=== PATIENT | female | born 1990 | race Caucasian/White ===

== ENCOUNTER 2019-02-22 03:59 | Outpatient (CLI) | payer OTHER ==
[~2019-02-22] VITALS: Ht 167.6 cm; Wt 80.5 kg
--- NOTE | 2019-02-22 04:06 | NUR ---
MEGAN HOWARD presented to unit via ambulation from ED, accompanied by s.o. and ED techs, with c/o CONTRACTIONS. MEGAN HOWARD weighed, gowned, voided, and to bed. EFHM and TOCO applied, VS taken. MEGAN HOWARD oriented to bed controls, call light, TV, heat, and A/C controls.
[2019-02-22 04:25] VITALS: BP 114/60
[2019-02-22] MEDS ORDERED: NS IV 1000 ML 1,000 ML ONE ×2 (04:25→05:34)
[2019-02-22 04:30] LABS: BILIRUBIN,URINE NEGATIVE (NEGATIVE); CLARITY,URINE CLEAR; COLOR,URINE YELLOW; GLUCOSE, URINE (UA) NEGATIVE (NEGATIVE); KETONES,URINE NEGATIVE (NEGATIVE); LEUKOCYTE ESTERASE ,URINE 2+ (NEGATIVE); NITRITE,URINE NEGATIVE (NEGATIVE); PH,URINE 7 (5-9); PROTEIN,URINE NEGATIVE (NEGATIVE); UROBILINOGEN,URINE NORMAL (NORMAL)
[2019-02-22] MEDS ORDERED: PROMETHAZINE INJ 25 MG/ML (PHENERGAN) AMP IVP PRN (04:30)
[2019-02-22] MEDS ORDERED: NS IV 1000 ML 1,000 ML IV SCH (04:30)
[2019-02-22] MEDS ORDERED: PROMETHAZINE INJ 25 MG/ML (PHENERGAN) AMP ONE (04:38)
[2019-02-22 04:43] LABS: BACTERIA,URINE MODERATE /HPF; WBC,URINE 0-2 /HPF
[2019-02-22] MEDS ORDERED: ONDANSETRON 4 MG/2 ML (SDV) Z0FRAN IVP PRN (04:45)
[2019-02-22 04:52] LABS: BASOPHILS % (AUTO) 0 % (0-10); EOSINOPHILS # (AUTO) 0.2 10^3/uL (0.0-0.3); EOSINOPHILS % (AUTO) 1 % (0-10); HEMATOCRIT 34 % (35-52); HEMOGLOBIN 11.4 G/DL (11.5-16.0); LYMPHOCYTES # (AUTO) 1.5 X 10^3 (1.0-4.0); LYMPHOCYTES % (AUTO) 14 % (12-44); MEAN CORPUSCULAR HEMOGLOBIN 30 PG (25-34); MEAN CORPUSCULAR HGB CONC 34 G/DL (32-36); MEAN CORPUSCULAR VOLUME 89 FL (80-99); MEAN PLATELET VOLUME 10.9 FL (7.4-10.4); MONOCYTES # (AUTO) 0.7 X 10^3 (0.0-1.0); MONOCYTES % (AUTO) 6 % (0-12); NEUTROPHILS # (AUTO) 8.6 X 10^3 (1.8-7.8); NEUTROPHILS % (AUTO) 78 % (42-75); PLATELET COUNT 209 10^3/uL (130-400)
[2019-02-22] MEDS ORDERED: OMEP20TA7 PO (05:01)
[2019-02-22] MEDS ORDERED: PREN1TAB79 PO (05:01)
[2019-02-22 05:23] LABS: ALANINE AMINOTRANSFERASE 19 U/L (0-55); ALBUMIN 3.5 GM/DL (3.2-4.5); ALKALINE PHOSPHATASE 97 U/L (40-136); BILIRUBIN,TOTAL 0.8 MG/DL (0.1-1.0); BUN/CREATININE RATIO 17; CARBON DIOXIDE 17 MMOL/L (21-32); CHLORIDE 107 MMOL/L (98-107); CREATININE SERUM 0.59 MG/DL (0.60-1.30); GFR ESTIMATED > 60; GLUCOSE 87 MG/DL (70-105); POTASSIUM 4.2 MMOL/L (3.6-5.0); SODIUM 137 MMOL/L (135-145); TOTAL PROTEIN 6.6 GM/DL (6.4-8.2)
--- NOTE | 2019-02-22 05:24 | NUR ---
Pt having severe nausea with increase in UC, Pt states UC are not that severe but nausea has pt moaning and moving in bed. Dr Spencer called and order for stadol received. Pt receptive to medication.
[2019-02-22] MEDS ORDERED: BUTORPHANOL INJ 2 MG/ML (STADOL) VIAL ONE (05:27)
[2019-02-22] MEDS ORDERED: BUTORPHANOL INJ 2 MG/ML (STADOL) VIAL IV ONE (05:30)
[2019-02-22] MEDS ORDERED: NS 1000 ML IV BAG IV ONE ×2 (05:45→11:00)
--- NOTE | 2019-02-22 06:47 | NUR ---
Dr Spencer called with report,no change at this time, pt continues to rest.
[2019-02-22 07:30] VITALS: BP 119/85
[2019-02-22] MEDS ORDERED: morphine INJ 5 MG/ML 1 ML VIAL IV PRN (09:45)
[2019-02-22] MEDS ORDERED: morphine INJ 10 MG/ML 1ML (SYR OR VIAL) IV PRN (10:00)
--- NOTE | 2019-02-22 12:25 | NUR ---
Discharge to home. OB outpt discharge instructions given. Follow up appointment 02/24/19. Ambulatory with to exit.
== END 2019-02-22 12:25 ==
LOC: WSo 03:59 → LDRP 04:05 → WSo 12:25
PROVIDERS: ATTEND Obstetrics & Gynecology
DX: O62.9 Abnormality of forces of labor, unspecified (principal); Z3A.38 38 weeks gestation of pregnancy
CPT/HCPCS: 36415; 80053; 81000; 85025; 96361; 96374; 96375; 99214

== ENCOUNTER 2019-02-28 03:05 | Inpatient (IN) | payer OTHER ==
[2019-02-28] VITALS (42 sets, daily range): BP systolic 99–130; BP diastolic 9–89
[~2019-02-28] VITALS: Ht 167.6 cm; Wt 82.2 kg
--- NOTE | 2019-02-28 02:59 | NUR ---
MEGAN HOWARD presented to unit via from ED, accompanied by , with c/o WAS HAVING CONTRACTIONS. MEGAN HOWARD weighed, gowned, voided, and to bed. EFHM and TOCO applied, VS taken. MEGAN HOWARD oriented to bed controls, call light, TV, heat, and A/C controls.
[~2019-02-28 03:05] MED LIST: OMEP20TA7 PO; PREN1TAB79 PO
--- NOTE | 2019-02-28 03:14 | NUR ---
notified of pt's arrival and exam. admission order received.
[2019-02-28] MEDS ORDERED: D5 LR IV SOLUTION 1,000 ML IV SCH (03:19)
[2019-02-28] MEDS ORDERED: LACTATED RINGERS 1,000 ML IV ONE ×3 (03:27→05:20)
[2019-02-28] MEDS ORDERED: MINERAL OIL CONCENTRATE 99.9% 15 ML UDC TOP PRN (03:30)
[2019-02-28 03:46] LABS: BASOPHILS % (AUTO) 0 % (0-10); EOSINOPHILS # (AUTO) 0.2 10^3/uL (0.0-0.3); EOSINOPHILS % (AUTO) 2 % (0-10); HEMATOCRIT 33 % (35-52); HEMOGLOBIN 11.5 G/DL (11.5-16.0); LYMPHOCYTES % (AUTO) 19 % (12-44); MEAN CORPUSCULAR HEMOGLOBIN 30 PG (25-34); MEAN CORPUSCULAR HGB CONC 35 G/DL (32-36); MEAN CORPUSCULAR VOLUME 88 FL (80-99); MEAN PLATELET VOLUME 10.9 FL (7.4-10.4); MONOCYTES # (AUTO) 0.8 X 10^3 (0.0-1.0); MONOCYTES % (AUTO) 8 % (0-12); NEUTROPHILS # (AUTO) 7.3 X 10^3 (1.8-7.8); NEUTROPHILS % (AUTO) 70 % (42-75); PLATELET COUNT 226 10^3/uL (130-400); WHITE BLOOD COUNT 10.3 10^3/uL (4.3-11.0)
[2019-02-28] MEDS ORDERED: SUFENTA 0.6MCG/ML BUPIVA 0.125 100 ML ONE (03:46)
[2019-02-28 03:59] LABS: BILIRUBIN,URINE NEGATIVE (NEGATIVE); CLARITY,URINE CLEAR; COLOR,URINE YELLOW; GLUCOSE, URINE (UA) NEGATIVE (NEGATIVE); KETONES,URINE NEGATIVE (NEGATIVE); LEUKOCYTE ESTERASE ,URINE 1+ (NEGATIVE); NITRITE,URINE NEGATIVE (NEGATIVE); PH,URINE 7 (5-9); PROTEIN,URINE NEGATIVE (NEGATIVE); UROBILINOGEN,URINE NORMAL (NORMAL)
[2019-02-28] MEDS ORDERED: MINERAL OIL CONCENTRATE 99.9% 15 ML UDC ONE (04:07)
[2019-02-28] MEDS ORDERED: OXYTOCIN/NORMAL SALINE 500 ML IV ONE ×2 (04:07→10:12)
[2019-02-28] MEDS ORDERED: LIDOCAINE/EPI 2% 1:200,00 (XYLOCAINE) 10 ML VIAL ONE (04:07)
--- NOTE | 2019-02-28 04:07 | NUR ---
called with sve and srom. dr. beltran to hospital
[2019-02-28 04:11] LABS: BACTERIA,URINE TRACE /HPF; SQUAMOUS EPITHELIAL CELL,UR 0-2 /HPF; URINE OTHER FEW SPERM /HPF; WBC,URINE 0-2 /HPF
[2019-02-28] MEDS ORDERED: LIDOCAINE PF 2% 5 ML (XYLOCAINE) VIAL ONE (04:33)
[2019-02-28] MEDS ORDERED: fentaNYL INJECTION 100 MCG/2 ML AMP ONE (04:33)
[2019-02-28] MEDS ORDERED: BUPIVACAINE 0.25% 30 ML (SENSORCAINE) VIAL ONE (04:33)
--- NOTE | 2019-02-28 04:34 | NUR ---
Maggi Esquivel CRNA here for epidural placement. Procedure explained, consent reviewed and signed by anesthesia. Questions answered to patient's satisfaction. Time out taken to verify correct patient/procedure. 0435 Patient up to side of bed, assisted into sitting position. Betadine prep done x3 and sterile drape applied. Local done, see anesthesia record. Test dose given, see anesthesia record for drug and dosage. Epidural catheter secured in place. Epidural placement complete. 0453 Assisted back into bed, monitors adjusted. Epidural dosed, see anesthesia record. Epidural of Sufenta/Bupvicaine @ 12cc/hr stated per pump. Patient tolerated procedure well.
--- NOTE | 2019-02-28 05:26 | History & Physical-OB ---
OB - Chief Complaint & HPI Date/Time Date of Admission: Date of Admission: Feb 28, 2019 at 03:25 Date seen by a Provider: Feb 28, 2019 Time Seen by a Provider: 04:33 Chief Complaint/History OB-Reason for Admission/Chief: Onset of Labor Hx : 3 Hx Para: 2 Expected Date of Delivery: Mar 06, 2019 Gestational Age in Weeks: 39 Gestational Age in Days: 1 Indication for induction: other (history of previous section; desires TOLAC. Consent form is signed and on chart. She will have epidural. ) Admission Nurse Assessment Rev: Yes History of Labs A-/_ received rhogam GBS - VDRL NR Hep B and C neg HIV neg Rub I Previous history of preeclampsia and delivery due to this. She has been on ASA this and DC at 36 weeks. Allergies and Home Medications Allergies Coded Allergies: No Known Drug Allergies (Unverified , 02/22/19) Home Medications Acetaminophen 500 Mg Tablet, 1,000 MG PO Q6H Prescribed by: LIGIA WILHELM on 03/02/19 0858 Ferrous Sulfate 325 Mg Tablet, 325 MG PO DAILY@0700 Prescribed by: LIGIA WILHELM on 03/02/19 0858 Ibuprofen 600 Mg Tablet, 600 MG PO Q6H Prescribed by: LIGIA WILHELM on 03/02/19 0858 Omeprazole 20 Mg Tablet.dr, 20 MG PO DAILY, (Reported) Vit W-Ca,Fe,FA(<1 mg) 1 Each Tablet, 1 EACH PO DAILY, (Reported) Patient Home Medication List Home Medication List Reviewed: Yes OB - History Hx of Present Ultrasounds: Normal mid trimester US Obstetrical Complications: None Medical Complications: None Information Induced Hypertension: No Maternal Gestational Diabetes: No Hemorrhage: No Obstetrical History Hx : 3 Hx Para: 2 Hx # Term Pregnancies: 1 Hx # Pregnancies: 1 Number of Living Children: 2 Hx Multiple Gestation: No Hx Ectopic : No Hx Stillbirth: No Hx Complication: No Hx Induced Hypertens: Yes Hx Maternal Gestational Diabet: No Hx Hemorrhage: No Delivery History Hx Placenta Abnormality: Yes Hx Section: Yes Hx Vaginal Delivery Post C-Sec: Yes Adverse Rxn to Tranfusion: No Patient Past Medical History NC Social History/Family History Alcohol Use: Denies Use Recreational Drug Use: No OB - Admission Exam Physical Exam Heart: Rhythm Normal Lungs: Clear, Crackles Abdomen: Gravid Cervical Dilatation: 5cm Effacement: 75% Station: -2 Membranes: Intact Heart Rate: 130's Accelerations: Accelerations Present Decelerations: No Decelerations Short Term Variability: Present Contractions on Admission: < 5 Minutes Apart Labs Laboratory Tests Test 02/28/19 03:00 02/28/19 03:25 Range/Units Urine Color YELLOW Urine Clarity CLEAR Urine pH 7 5-9 Urine Specific [place] 1.005 L 1.016-1.022 Urine Protein NEGATIVE NEGATIVE Urine Glucose (UA) NEGATIVE NEGATIVE Urine Ketones NEGATIVE NEGATIVE Urine Nitrite NEGATIVE NEGATIVE Urine Bilirubin NEGATIVE NEGATIVE Urine Urobilinogen NORMAL NORMAL MG/DL Urine Leukocyte Esterase 1+ H NEGATIVE Urine RBC (Auto) NEGATIVE NEGATIVE Urine RBC NONE /HPF Urine WBC 0-2 /HPF Urine Squamous Epithelial Cells 0-2 /HPF Urine Crystals NONE /LPF Urine Bacteria TRACE /HPF Urine Casts NONE /LPF Urine Mucus NEGATIVE /LPF Urine Other FEW SPERM H /HPF Urine Culture Indicated NO White Blood Count 10.3 4.3-11.0 10^3/uL Red Blood Count 3.80 L 4.35-5.85 10^6/uL Hemoglobin 11.5 11.5-16.0 G/DL Hematocrit 33 L 35-52 % Mean Corpuscular Volume 88 80-99 FL Mean Corpuscular Hemoglobin 30 25-34 PG Mean Corpuscular Hemoglobin Concent 35 32-36 G/DL Red Cell Distribution Width 13.0 10.0-14.5 % Platelet Count 226 130-400 10^3/uL Mean Platelet Volume 10.9 H 7.4-10.4 FL Neutrophils (%) (Auto) 70 42-75 % Lymphocytes (%) (Auto) 19 12-44 % Monocytes (%) (Auto) 8 0-12 % Eosinophils (%) (Auto) 2 0-10 % Basophils (%) (Auto) 0 0-10 % Neutrophils # (Auto) 7.3 1.8-7.8 X 10^3 Lymphocytes # (Auto) 2.0 1.0-4.0 X 10^3 Monocytes # (Auto) 0.8 0.0-1.0 X 10^3 Eosinophils # (Auto) 0.2 0.0-0.3 10^3/uL Basophils # (Auto) 0.0 0.0-0.1 10^3/uL OB - Assessment/Plan/Diagnosis Assessment Assessment: active labor, other (Previous section) Admission Dx 1. 39 week gestation with history of previous section in labor 2. Desires TOLAC 3. Rh - Plan TOLAC. Consent on chart. Epidural placed. Anticipated Peds - [facility] Admission Status: Inpatient Order (span 2 midnights) Reason for Inpatient Admission: LAbor LIGIA WILHELM DO Feb 28, 2019 05:26
[2019-02-28] MEDS ORDERED: ONDANSETRON 4 MG/2 ML (SDV) Z0FRAN IV PRN (05:30)
[2019-02-28] MEDS ORDERED: EPIDURAL (SUFENTA 0.6MCG/ML BUPIVA 0.125%) 100 ML BAG EPI PRN (05:30)
[2019-02-28] MEDS ORDERED: NALOXONE 0.4 MG/ML 1 ML (NARCAN) VIAL IV PRN (05:30)
[2019-02-28] MEDS ORDERED: CATHETER FLUSH 10 ML SYR IV SCH ×2 (06:00→14:00)
--- NOTE | 2019-02-28 09:10 | NUR ---
was called r/t YOGIE.
[2019-02-28] MEDS ORDERED: WITCH HAZEL(TUCKS) 40 EA JAR ONE (10:12)
[2019-02-28] MEDS ORDERED: BENZOCAINE/MENTHOL (DERMOPLAST) 56 ML CAN TP ONE (10:12)
[2019-02-28] MEDS ORDERED: OXYTOCIN/NORMAL SALINE 500 ML IV SCH (10:13)
[2019-02-28] MEDS ORDERED: MEASLES,MUMPS,RUBELLA 1 EA INJ SQ ONE (10:15)
[2019-02-28] MEDS ORDERED: WITCH HAZEL(TUCKS) 40 EA JAR TOP PRN (10:15)
[2019-02-28] MEDS ORDERED: TETANUS,DIPTH,PERTUSS P/F (BOOSTRIX) 0.5 ML VIAL IM ONE (10:15)
[2019-02-28] MEDS ORDERED: BENZOCAINE/MENTHOL (DERMOPLAST) 56 ML CAN TP PRN (10:15)
--- NOTE | 2019-02-28 10:16 | OB Labor & Delivery Record ---
Vag Delivery Note Vag Delivery Note Date of Delivery: 02/28/19 Preoperative Diagnosis: Maria Gongora is a 28 /Para 3 / 2, Gestational Age at 39 1/7 weeks, history of section, trial of labor Postoperative Diagnosis: Same Surgeon: LIGIA WILHELM Anesthesia: epidural Delivery Type: vaginal after section Findings: Viable female , apgars 7/9, weight pending Lacerations: 2nd degree Intact placenta with 3 vessel cord. No nuchal cord, body cord or shoulder dystocia Estimated Blood Loss: 500 ml Complications: None Condition: Stable Description of Procedure: The patient is a 28 /Para 3 / 2,Gestational Age at 39 1/7 weeks, history of section, who presented in active labor and desired trial of labor. She was admitted and informed consent was obtained. Her labor course was remarkable for active labor. TOLAC form/consent is on the chart. She progressed to complete dilatation and began to push. She was then set up for delivery. The infant's head was delivered atraumatically in the OA position. The shoulders and remainder of the infant's body were then delivered without difficulty. Upon delivery, the head was held below the level of the perineum and the mouth and nares were bulb suctioned. The cord was doubly clamped and cut and the was handed off to the pediatric staff. An intact placenta with 3-vessel cord delivered via Edward and there was found to be minimal bleeding.~ Vigorous fundal massage was performed and the fundus was found to be firm. IV oxytocin was given. Examination of the vagina and perineum revealed a 2nd laceration repaired in the usual fashion with 3-0 vicryl suture. Following the repair, sponge, instrument and needle counts were correct. Mom and baby were both in stable condition in the labor suite. Vitals - Labs Vital Signs - I&O Vital Signs Date Time Temp Pulse Resp B/P (MAP) Pulse Ox O2 Delivery O2 Flow Rate FiO2 02/28/19 07:00 89 16 113/76 (88) 100 Room Air 02/28/19 06:45 97.6 82 16 120/77 (91) 100 Room Air 02/28/19 06:30 71 16 124/73 (90) 100 Non Rebreather 10.00 02/28/19 06:15 67 16 112/77 (89) 100 Non Rebreather 10.00 02/28/19 06:00 96 16 104/75 (85) 100 Non Rebreather 10.00 02/28/19 05:45 101 16 111/76 (88) 100 Room Air 02/28/19 05:29 80 16 113/77 (89) 100 Room Air 02/28/19 05:25 70 16 109/73 (85) 100 Room Air 02/28/19 05:23 71 16 109/78 (88) 100 Room Air 02/28/19 05:20 82 16 111/80 (90) 100 Room Air 02/28/19 05:15 88 20 112/80 (91) 100 Room Air 02/28/19 05:11 87 20 105/85 (92) 100 Room Air 02/28/19 05:08 80 20 115/82 (93) 100 Room Air 02/28/19 05:05 92 20 118/87 (97) 100 Room Air 02/28/19 05:02 72 20 121/89 (100) 100 Room Air 02/28/19 04:58 86 20 126/87 (100) 98 Room Air 02/28/19 04:50 102 20 128/85 (99) 98 Room Air 02/28/19 04:35 75 20 125/83 (97) Room Air 02/28/19 04:15 71 20 122/78 (93) Room Air 02/28/19 03:45 79 20 125/75 (92) Room Air 02/28/19 03:15 97.0 72 20 126/87 (100) Room Air I & O 02/28/19 07:00 Intake Total 1000 ml Balance 1000 ml Labs Laboratory Tests 02/28/19 03:00: Urine Color YELLOW, Urine Clarity CLEAR, Urine pH 7, Urine Specific [place] 1.005L, Urine Protein NEGATIVE, Urine Glucose (UA) NEGATIVE, Urine Ketones NEGATIVE, Urine Nitrite NEGATIVE, Urine Bilirubin NEGATIVE, Urine Urobilinogen NORMAL, Urine Leukocyte Esterase 1+H, Urine RBC (Auto) NEGATIVE, Urine RBC NONE , Urine WBC 0-2, Urine Squamous Epithelial Cells 0-2, Urine Crystals NONE, Urine Bacteria TRACE, Urine Casts NONE, Urine Mucus NEGATIVE, Urine Other FEW SPERMH, Urine Culture Indicated NO 02/28/19 03:25: White Blood Count 10.3, Red Blood Count 3.80L, Hemoglobin 11.5, Hematocrit 33L, Mean Corpuscular Volume 88, Mean Corpuscular Hemoglobin 30, Mean Corpuscular Hemoglobin Concent 35, Red Cell Distribution Width 13.0, Platelet Count 226, Mean Platelet Volume 10.9H, Neutrophils (%) (Auto) 70, Lymphocytes (%) (Auto) 19 , Monocytes (%) (Auto) 8, Eosinophils (%) (Auto) 2, Basophils (%) (Auto) 0, Neutrophils # (Auto) 7.3, Lymphocytes # (Auto) 2.0, Monocytes # (Auto) 0.8, Eosinophils # (Auto) 0.2, Basophils # (Auto) 0.0 LIGIA WILHELM DO Feb 28, 2019 10:16
--- NOTE | 2019-02-28 11:55 | NUR ---
FFu/0. moderate rubra noted. no clots expressed. tisha-care offered. v-pad and panties in place.
--- NOTE | 2019-02-28 11:59 | NUR ---
pt transferred to room 310 via w/c with this RN, and family members @ side. pt stable with no c/o's voiced. call light within reach. reviewed room supplies and room service.
--- NOTE | 2019-02-28 13:55 | NUR ---
pt assisted up to BR. Rt. leg remains sl heavy. tisha-care offered. v-pad and ice pack applied to perineum.
[2019-02-28] MEDS: IBUPROFEN 600 MG (MOTRIN) TAB PO SCH (17:55)
--- NOTE | 2019-02-28 18:20 | NUR ---
up to shower.
--- NOTE | 2019-02-28 19:20 | NUR ---
report given to next shift.
[2019-02-28] MEDS: ACETAMINOPHEN 500 MG TAB (TYLENOL) PO SCH ×2 (20:20→23:25)
[2019-02-28] MEDS: DOCUSATE SODIUM 100 MG (COLACE) CAP PO SCH (20:20)
[2019-03-01] VITALS: BP 105/55
[2019-03-01] MEDS: IBUPROFEN 600 MG (MOTRIN) TAB PO SCH ×4 (00:02→20:05)
[2019-03-01 05:05] VITALS: BP 95/66
[2019-03-01 06:16] LABS: BASOPHILS % (AUTO) 0 % (0-10); EOSINOPHILS # (AUTO) 0.2 10^3/uL (0.0-0.3); EOSINOPHILS % (AUTO) 2 % (0-10); HEMATOCRIT 28 % (35-52); HEMOGLOBIN 9.4 G/DL (11.5-16.0); LYMPHOCYTES % (AUTO) 17 % (12-44); MEAN CORPUSCULAR HEMOGLOBIN 30 PG (25-34); MEAN CORPUSCULAR HGB CONC 34 G/DL (32-36); MEAN CORPUSCULAR VOLUME 89 FL (80-99); MEAN PLATELET VOLUME 10.5 FL (7.4-10.4); MONOCYTES # (AUTO) 0.9 X 10^3 (0.0-1.0); MONOCYTES % (AUTO) 7 % (0-12); NEUTROPHILS # (AUTO) 9.1 X 10^3 (1.8-7.8); NEUTROPHILS % (AUTO) 75 % (42-75); PLATELET COUNT 208 10^3/uL (130-400); RED CELL DISTRIBUTION WIDTH 12.7 % (10.0-14.5); WHITE BLOOD COUNT 12.2 10^3/uL (4.3-11.0)
[2019-03-01] MEDS ORDERED: FERROUS SULF 325 MG (IRON) TAB PO SCH (07:00)
[2019-03-01 07:42] VITALS: BP 117/77
[2019-03-01] MEDS: DOCUSATE SODIUM 100 MG (COLACE) CAP PO SCH ×2 (07:45→20:05)
[2019-03-01] MEDS: PRENATAL VITAMIN 1 EA TAB PO SCH (07:45)
--- NOTE | 2019-03-01 10:27 | Anesthesia-Regional Post-Op ---
Regional Patient Condition Mental Status: Alert, Oriented x3 Circulation: Same as Pre-Op Headache: Absent Sensation: Full Recovery Motor Block: Absent Post Op Complications Complications None Follow Up Care/Instructions Patient Instructions None needed. Anesthesia/Patient Condition Patient is doing well, no complaints, stable vital signs, no apparent adverse anesthesia problems. No complications reported per nursing. CHRISTEN MELENDEZ CRNA Mar 01, 2019 10:27
--- NOTE | 2019-03-01 11:33 | NUR ---
Pt is Mandaen. Pbx Installer offered prayer and Communion.
[2019-03-01 14:21] VITALS: BP 117/70
--- NOTE | 2019-03-01 20:00 | NUR ---
rhogam given in left gluteus. pt tolerated well.
[2019-03-01] MEDS: ACETAMINOPHEN 500 MG TAB (TYLENOL) PO SCH (20:05)
[2019-03-01] MEDS ORDERED: DIBUCAINE (NUPERCAINAL) 1% OINT 30 GM ONE (20:07)
[2019-03-01 20:30] VITALS: BP 124/94
--- NOTE | 2019-03-01 20:30 | NUR ---
Pt resting in bed. s/o at bedside. assessment completed. pt c/o perineum pain. Nupercaine ordered. pt denies any other needs at this time. will continue to monitor.
[2019-03-01] MEDS ORDERED: DIBUCAINE (NUPERCAINAL) 1% OINT 30 GM TOP PRN (21:30)
[2019-03-02 02:29] VITALS: BP 98/59
[2019-03-02] MEDS: IBUPROFEN 600 MG (MOTRIN) TAB PO SCH ×2 (04:13→09:46)
[2019-03-02] MEDS: ACETAMINOPHEN 500 MG TAB (TYLENOL) PO SCH (04:15)
[2019-03-02 08:00] VITALS: BP 115/76
--- NOTE | 2019-03-02 08:40 | NUR ---
DR. MAYA IN TO SEE . PLAN FOR DISCHARGE. . DOING WELL. VSS.
[2019-03-02] MEDS ORDERED: ACET-77 PO (08:58)
[2019-03-02] MEDS ORDERED: IBUP-844 PO (08:58)
[2019-03-02] MEDS ORDERED: FERR325T18 PO (08:58)
--- NOTE | 2019-03-02 09:00 | Discharge Inst-Women's Service ---
Discharge Inst-Women's Serv Depart Medication/Instructions New, Converted or Re-Newed RX: RX on Chart Final Diagnosis vaginal delivery iron deficiency anemia Consults/Follow Up Additional Follow Up: Yes (6 week) Activity Activity: Activity as Tolerated Driving Instructions: You May Drive NO SMOKING: NO SMOKING Nothing Inside Vagina: No Douching, No [place], No Tampons Diet Discharge Diet: No Restrictions Symptoms to Report to : Swelling Increased, Bleeding Excessive, Fever Over 101 Degrees F, Vaginal Bleeding Increase, Cramps in Feet or Legs, Vaginal Discharge Foul For Any Problems or Questions: Contact Your Physician LIGIA WILHELM DO Mar 02, 2019 09:00
--- NOTE | 2019-03-02 09:30 | NUR ---
PHYSICAL ASSESSMENT COMPLETED. VSS. PLANNING TO GO HOME.
--- NOTE | 2019-03-02 09:37 | NUR ---
Kettle Operator Head offered prayer and Communion.
[2019-03-02] MEDS: PRENATAL VITAMIN 1 EA TAB PO SCH (09:45)
[2019-03-02] MEDS: DOCUSATE SODIUM 100 MG (COLACE) CAP PO SCH (09:46)
--- NOTE | 2019-03-02 10:01 | NUR ---
DISCHARGE INSTRUCTIONS REVIEWED WITH COPY TO PT. RXS GIVEN. STATES UNDERSTANDING OF ALL INSTRUCTIONS AND NEED TO F/U SCHEDULED AND NEEDED.
[2019-03-02 11:45] VITALS: BP 115/76
--- NOTE | 2019-03-02 11:45 | NUR ---
DISMISSED AMB FROM [facility] WITH IN STABLE CONDITION TO FAMILY CAR ACC BY SPOUSE AND MARSHALL CABRERA.
== END 2019-03-02 11:45 | disposition home or self-care (01) | DRG 807 ==
LOC: LDRP 03:05 → WSo 03:05 → LDRP 03:25
PROVIDERS: ADMIT Obstetrics & Gynecology; ATTEND Obstetrics & Gynecology
PROC: 10E0XZZ Delivery of Products of Conception, External Approach (ICD-10-PCS; principal; 2019-02-28)
PROC: 0KQM0ZZ Repair Perineum Muscle, Open Approach (ICD-10-PCS; 2019-02-28)
DX: O34.211 Maternal care for low transverse scar from previous cesarean delivery (principal); O70.1 Second degree perineal laceration during delivery; O99.03 Anemia complicating the puerperium; D50.9 Iron deficiency anemia, unspecified; Z37.0 Single live birth; Z3A.39 39 weeks gestation of pregnancy
CPT/HCPCS: 36415; 81000; 83033; 85025; 86850; 86900; 86901; 99212

== ENCOUNTER 2020-05-15 19:09 | Emergency (ER) | payer OTHER ==
[~2020-05-15] VITALS: Ht 167 cm; Wt 68.0 kg
[~2020-05-15 19:09] MED LIST changes: +ACET-78 PO; +FERR325T18 PO; +IBUP-844 PO
[2020-05-15 19:21] LABS: BASOPHILS % (AUTO) 0 % (0-10); EOSINOPHILS # (AUTO) 0.1 10^3/uL (0.0-0.3); EOSINOPHILS % (AUTO) 1 % (0-10); HEMATOCRIT 40 % (35-52); HEMOGLOBIN 13.8 G/DL (11.5-16.0); LYMPHOCYTES # (AUTO) 1.3 X 10^3 (1.0-4.0); LYMPHOCYTES % (AUTO) 11 % (12-44); MEAN CORPUSCULAR HEMOGLOBIN 29 PG (25-34); MEAN CORPUSCULAR HGB CONC 34 G/DL (32-36); MEAN CORPUSCULAR VOLUME 85 FL (80-99); MEAN PLATELET VOLUME 9.7 FL (7.4-10.4); MONOCYTES % (AUTO) 8 % (0-12); NEUTROPHILS # (AUTO) 9.9 X 10^3 (1.8-7.8); NEUTROPHILS % (AUTO) 80 % (42-75); PLATELET COUNT 379 10^3/uL (130-400); RED CELL DISTRIBUTION WIDTH 12.6 % (10.0-14.5); WHITE BLOOD COUNT 12.4 10^3/uL (4.3-11.0)
[2020-05-15 19:25] LABS: BILIRUBIN,URINE NEGATIVE (NEGATIVE); CLARITY,URINE CLEAR; COLOR,URINE YELLOW; GLUCOSE, URINE (UA) NEGATIVE (NEGATIVE); KETONES,URINE TRACE (NEGATIVE); LEUKOCYTE ESTERASE ,URINE 1+ (NEGATIVE); NITRITE,URINE NEGATIVE (NEGATIVE); PH,URINE 6.5 (5-9); PROTEIN,URINE NEGATIVE (NEGATIVE)
[2020-05-15 19:32] LABS: ALBUMIN 4.8 GM/DL (3.2-4.5); CHLORIDE 104 MMOL/L (98-107); POTASSIUM 4.1 MMOL/L (3.6-5.0); SODIUM 139 MMOL/L (135-145)
[2020-05-15 19:33] LABS: AMORPHOUS SEDIMENT,UR FEW AMOR URATES /LPF; BACTERIA,URINE TRACE /HPF
[2020-05-15 19:33] LABS: CALCIUM 9.8 MG/DL (8.5-10.1)
[2020-05-15 19:35] LABS: GLUCOSE 91 MG/DL (70-105); TOTAL PROTEIN 8.4 GM/DL (6.4-8.2)
[2020-05-15 19:36] LABS: BILIRUBIN,TOTAL 1.8 MG/DL (0.1-1.0); CARBON DIOXIDE 22 MMOL/L (21-32)
[2020-05-15 19:38] LABS: ALKALINE PHOSPHATASE 52 U/L (40-136); CREATININE SERUM 0.85 MG/DL (0.60-1.30); GFR ESTIMATED > 60
[2020-05-15 19:39] LABS: BUN/CREATININE RATIO 11
[2020-05-15 19:41] LABS: ALANINE AMINOTRANSFERASE 18 U/L (0-55)
--- NOTE | 2020-05-15 19:44 | ED Abdominal Pain ---
General Chief Complaint: Abdominal/GI Problems Stated Complaint: ABD PAIN Nursing Triage Note: C/O RIGHT SIDED ABDOMINAL PAIN STARTED YESTERDAY WITH SOME NAUSEA. INCREASED TODAY CURRENTLY RATING PAIN A 4-5/10, PATIENT IS ALERT AND ORIENTED X4, CALL LIGHT IN REACH. Sepsis Screen: No Definite Risk Source of Information: Patient Exam Limitations: No Limitations History of Present Illness Date Seen by Provider: May 15, 2020 Time Seen by Provider: 19:42 Initial Comments To er with c/o RLQ abdominal pain that began this morning, nausea started y esterday. Has had some chills. No dysuria or bowel changes. Timing/Duration: 1-2 Days Severity/Quality: Moderate Location: RLQ Radiation: No Radiation Activities at Onset: None Associated Symptoms: Nausea/Vomiting Allergies and Home Medications Allergies Coded Allergies: No Known Drug Allergies (Unverified , 05/15/20) Home Medications Acetaminophen 500 Mg Tablet, 1,000 MG PO Q6H Prescribed by: LIGIA WILHELM on 03/02/19 0858 Ferrous Sulfate 325 Mg Tablet, 325 MG PO DAILY@0700 Prescribed by: LIGIA WILHELM on 03/02/19 0858 Ibuprofen 600 Mg Tablet, 600 MG PO Q6H Prescribed by: LIGIA WILHELM on 03/02/19 0858 Omeprazole 20 Mg Tablet.dr, 20 MG PO DAILY, (Reported) Vit W-Ca,Fe,FA(<1 mg) 1 Each Tablet, 1 EACH PO DAILY, (Reported) Patient Home Medication List Home Medication List Reviewed: Yes Review of Systems Review of Systems Constitutional: see HPI EENTM: No Symptoms Reported Respiratory: No Symptoms Reported Cardiovascular: No Symptoms Reported Gastrointestinal: See HPI, Abdominal Pain, Nausea Genitourinary: No Symptoms Reported Musculoskeletal: no symptoms reported Skin: no symptoms reported Psychiatric/Neurological: No Symptoms Reported Endocrine: No Symptoms Reported Hematologic/Lymphatic: No Symptoms Reported Past [id number] Hx Patient Social History Alcohol Use: Denies Use Recreational Drug Use: No Recent Foreign Travel: No Contact w/Someone Who Travel: No Recent Infectious Disease Expo: No Recent Hopitalizations: No Physical Abuse: No Sexual Abuse: No Mistreated: No Fear: No Immunizations Up To Date PED Vaccines UTD: Yes Seasonal Allergies Seasonal Allergies: No Past Medical History Surgeries: Yes Respiratory: No Cardiac: No Neurological: No Genitourinary: No Gastrointestinal: No Musculoskeletal: No Endocrine: No HEENT: No Cancer: No Psychosocial: No Integumentary: No Blood Disorders: No Adverse Reaction/Blood Tranf: No Family Medical History Hypertension 19 FATHER Physical Exam Vital Signs Vital Signs - First Documented 05/15/20 19:11 Temp 36.1 Pulse 85 Resp 20 B/P (MAP) 128/83 (98) Pulse Ox 100 Capillary Refill : Less Than 3 Seconds Height/Weight/BMI Height: 5'6.00" Weight: 181lbs. 2.0oz. [id number]; 24.00 BMI Method: General Appearance: WD/WN, no apparent distress HEENT: PERRL/EOMI, normal ENT inspection Respiratory: no respiratory distress, no accessory muscle use Cardiovascular: regular rate, rhythm, no murmur Gastrointestinal: normal bowel sounds, soft, tenderness Extremities: normal range of motion, non-tender Neurologic/Psychiatric: alert, normal mood/affect, oriented x 3 Skin: normal color, warm/dry Progress/Results/Core Measures Results/Orders Lab Results Laboratory Tests Test 05/15/20 19:14 05/15/20 19:19 Range/Units White Blood Count 12.4 H 4.3-11.0 10^3/uL Red Blood Count 4.77 4.35-5.85 10^6/uL Hemoglobin 13.8 11.5-16.0 G/DL Hematocrit 40 35-52 % Mean Corpuscular Volume 85 80-99 FL Mean Corpuscular Hemoglobin 29 25-34 PG Mean Corpuscular Hemoglobin Concent 34 32-36 G/DL Red Cell Distribution Width 12.6 10.0-14.5 % Platelet Count 379 130-400 10^3/uL Mean Platelet Volume 9.7 7.4-10.4 FL Neutrophils (%) (Auto) 80 H 42-75 % Lymphocytes (%) (Auto) 11 L 12-44 % Monocytes (%) (Auto) 8 0-12 % Eosinophils (%) (Auto) 1 0-10 % Basophils (%) (Auto) 0 0-10 % Neutrophils # (Auto) 9.9 H 1.8-7.8 X 10^3 Lymphocytes # (Auto) 1.3 1.0-4.0 X 10^3 Monocytes # (Auto) 1.0 0.0-1.0 X 10^3 Eosinophils # (Auto) 0.1 0.0-0.3 10^3/uL Basophils # (Auto) 0.0 0.0-0.1 10^3/uL Sodium Level 139 135-145 MMOL/L Potassium Level 4.1 3.6-5.0 MMOL/L Chloride Level 104 98-107 MMOL/L Carbon Dioxide Level 22 21-32 MMOL/L Anion Gap 13 5-14 MMOL/L Blood Urea Nitrogen 9 7-18 MG/DL Creatinine 0.85 0.60-1.30 MG/DL Estimat Glomerular Filtration Rate > 60 BUN/Creatinine Ratio 11 Glucose Level 91 70-105 MG/DL Calcium Level 9.8 8.5-10.1 MG/DL Corrected Calcium 8.5-10.1 MG/DL Total Bilirubin 1.8 H 0.1-1.0 MG/DL Aspartate Amino Transf (AST/SGOT) 17 5-34 U/L Alanine Aminotransferase (ALT/SGPT) 18 0-55 U/L Alkaline Phosphatase 52 40-136 U/L C-Reactive Protein High Sensitivity 1.28 H 0.00-0.50 MG/DL Total Protein 8.4 H 6.4-8.2 GM/DL Albumin 4.8 H 3.2-4.5 GM/DL Serum Test, Qualitative NEGATIVE NEGATIVE Urine Color YELLOW Urine Clarity CLEAR Urine pH 6.5 5-9 Urine Specific [place] <=1.005 1.016-1.022 Urine Protein NEGATIVE NEGATIVE Urine Glucose (UA) NEGATIVE NEGATIVE Urine Ketones TRACE H NEGATIVE Urine Nitrite NEGATIVE NEGATIVE Urine Bilirubin NEGATIVE NEGATIVE Urine Urobilinogen 0.2 < = 1.0 MG/DL Urine Leukocyte Esterase 1+ H NEGATIVE Urine RBC (Auto) NEGATIVE NEGATIVE Urine RBC NONE /HPF Urine WBC 2-5 /HPF Urine Crystals PRESENT H /LPF Urine Amorphous Sediment FEW SANTANA URATES H /LPF Urine Bacteria TRACE /HPF Urine Casts NONE /LPF Urine Mucus NEGATIVE /LPF Urine Culture Indicated YES My Orders Orders - EDISON ELLISON HAND KNITTER Cbc With Automated Diff (05/15/20 19:15) Comprehensive Metabolic Panel (05/15/20 19:15) Hs C Reactive Protein (05/15/20 19:15) Ed Iv/Invasive Line Start (05/15/20 19:15) Ua Culture If Indicated (05/15/20 19:15) Hcg,Qualitative Serum (05/15/20 19:15) Urine Culture (05/15/20 19:19) Ct Abd/Pelv W (Appendicitis) (05/15/20 19:41) Iohexol Injection (Omnipaque 350 Mg/Ml 1 (05/15/20 20:00) Di Iv Start (Assessment) .IV start (05/15/20 19:47) Received Contrast (Hold Metformin- Contr (05/15/20 20:00) Ns (Ivpb) (Sodium Chloride 0.9% Ivpb Bag (05/15/20 20:00) Medications Given in ED Current Medications Medications Dose Ordered Sig/Sayra Route Start Time Stop Time Status Last Admin Dose Admin Iohexol 75 ml ONCE ONCE IV 05/15/20 20:00 05/15/20 20:01 DC 05/15/20 19:58 75 ML Sodium Chloride 100 ml ONCE ONCE IV 05/15/20 20:00 05/15/20 20:01 DC 05/15/20 19:58 80 ML Vital Signs/I&O 05/15/20 19:11 Temp 36.1 Pulse 85 Resp 20 B/P (MAP) 128/83 (98) Pulse Ox 100 Blood Pressure Mean: 98 Departure Impression Primary Impression: Ovarian cyst Disposition: HOME, SELF-CARE Condition: Stable Departure-Patient Inst. Decision time for Depature: 20:24 Referrals: KATHYA SESAY MD (PCP/Family) Primary Care Physician Patient Instructions: Ovarian Cysts EDISON ELLISON HAND KNITTER May 15, 2020 19:44
[2020-05-15] MEDS ORDERED: IOHEXOL 350 MG/ML 100 ML (OMNIPAQUE 350) VIAL IV ONE (20:00)
[2020-05-15] MEDS ORDERED: HOLD METFORMIN - RECEIVED CONTRAST 20 ML VIAL IV SCH (20:00)
[2020-05-15] MEDS ORDERED: NS 100 ML (IVPB) BAG IV ONE (20:00)
[2020-05-15 20:28] VITALS: BP 128/83
--- NOTE | 2020-05-15 20:36 | Diagnostic Imaging Report ---
PROCEDURE: CT abdomen and pelvis with contrast, rule out appendicitis. TECHNIQUE: Multiple contiguous axial images were obtained through the abdomen and pelvis after the administration of intravenous contrast. All CT scans use one or more of the following dose optimizing techniques: automated exposure control, MA and/or KvP adjustment based on a patient size and exam type, or iterative reconstruction. INDICATION: Right lower quadrant pain for 24 hours. Nausea. EXAMINATION: CT abdomen and pelvis with contrast from 05/15/2020 FINDINGS: The appendix is seen and is unremarkable. No surrounding inflammatory changes seen at this time. It is approximately 5 to 6 mm in thickness. There is, however, a large cystic lesion in the right adnexa 3.2 cm in size and likely ovarian in origin. There is a small amount of free fluid in the pelvis likely physiologic or due to a recently ruptured cyst. Within the remaining abdomen and pelvis the liver and spleen normal. The gallbladder unremarkable. The pancreas and adrenal glands normal. Kidneys unremarkable. There is fluid within the endometrial canal. Cystic changes left ovary also noted with low density posterior to the expected location of the left ovary and nonspecific. A dilated fallopian tube difficult to exclude and sonography could better characterize this finding. There are findings of mild constipation but no inflammatory change about the bowel loops. Lung bases clear. Osseous structures unremarkable for acute abnormality. IMPRESSION: 1. Appendix is seen and unremarkable in appearance. 2. Cystic lesion right adnexa likely ovarian with free fluid in the pelvis and questionable fluid versus dilated duct in the left adnexa; sonography recommended for further characterization. Other incidental findings as above. Dictated by: Dictated on workstation # [id number]
--- OUTSIDE RECORDS SUMMARY | 2020-05-15 22:15 | XMS REPORT | Continuity of Care Document ---
Author Organization Unknown Address Unknown Phone Unavailable Allergies Active Description Code Type Severity Reaction Onset Reported/Identified Relationship to Patient Clinical Status Yes No Known Drug Allergies [id number] Drug Allergy Unknown N/A 02/22/2019 Medications There is no data. Problems Date Dx Coded Attending Type Code Diagnosis Diagnosed By 11/29/2018 CHOCO DICKENS LIGIA C Ot Z36.8 9 ENCOUNTER FOR OTHER SPECIFIED 11/29/2018 WILHELM DO LIGIA C Ot Z3A.2 7 27 WEEKS GESTATION OF 01/05/2019 WILHELM DO LIGIA C Ot Z36.8 9 ENCOUNTER FOR OTHER SPECIFIED 01/05/2019 WILHELM DO LIGIA C Ot Z3A.2 7 27 WEEKS GESTATION OF 02/22/2019 CHOCO DICKENS LIGIA C Ot Z36.8 9 ENCOUNTER FOR OTHER SPECIFIED 02/22/2019 WILHELM DO LIGIA C Ot Z3A.2 7 27 WEEKS GESTATION OF 02/23/2019 WILHELM DO LIGIA C Ot O62.9 ABNORMALITY OF FORCES OF LABOR, UNSPECIF 02/23/2019 WILHELM DO LIGIA C Ot Z3A.3 8 38 WEEKS GESTATION OF 03/02/2019 SEALS DO, TREESA E Ot D50.9 IRON DEFICIENCY ANEMIA, UNSPECIFIED 03/02/2019 SEALS DO TERESA E Ot O34.2 11 MATERN CARE FOR LOW TRANSVERSE SCAR FROM 03/02/2019 SEALS DO, TERESA E Ot O70.1 SECOND DEGREE PERINEAL LACERATION DURING 03/02/2019 SEALS DO, TERESA E Ot O99.0 3 ANEMIA COMPLICATING THE PUERPERIUM 03/02/2019 SEALS DO, TERESA E Ot Z37.0 SINGLE LIVE 03/02/2019 SEALS DO, TERESA E Ot Z3A.3 9 39 WEEKS GESTATION OF Procedures Code Description Performed By Per formed On [id number] RE PAIR PERINEUM MUSCLE, OPEN APPROACH 02/28/2019 [id number] DE LIVERY OF PRODUCTS OF CONCEPTION, EXTE 02/28/2019 Results Test Result Range Complete urinalysis with reflex to cultu re - 02/22/19 04:15 Urine color determination YELLOW NRG Urine clarity determination CLEAR NR G Urine pH measurement by test strip 7 5-9 Specific gravity of urine by test strip 1.010 1.016-1.022 Urine protein assay by test strip, semi-quantitative NEGATIVE NEGATIVE Urine glucose detection by automated test strip NE GATIVE NEGATIVE Erythrocytes detection in urine sediment by light micr oscopy NEGATIVE NEGATIVE Urine ketones detection by automated test strip NE GATIVE NEGATIVE Urine nitrite detection by test strip NEGATIVE NEGATIVE Urine total bilirubin detection by test strip NEGA TIVE NEGATIVE Urine urobilinogen measurement by automated test strip (mass/volume) NORMAL NORMAL Urine leukocyte esterase detection by dipstick 2+ NEGATIVE Automated urine sediment erythrocyte cou nt by microscopy (number/high power field) NONE NRG Automated urine sediment leukocyte count by microscopy (number/high power field) [HPF] NRG Bacteria detection in urine sediment by light microsco py MODERATE NRG Squamous epithelial cells detection in u rine sediment by light microscopy 2-5 NRG Crystals detection in urine sediment by light microsco py NONE NRG Casts detection in urine sediment by light microscopy NONE NRG Mucus detection in urine sediment by light microscopy NEGATIVE NRG Complete urinalysis with reflex to culture NO NRG Complete blood count (CBC) with automate d white blood cell (WBC) differential - 02/22/19 04:40 Blood leukocytes automated count (number/volume) 11.0 10*3/uL 4.3-11.0 Blood erythrocytes automated count (number/volume) 3.84 10*6/uL 4.35-5.85 Venous blood hemoglobin measurement (mass/volume) 11.4 g/dL 11.5-16.0 Blood hematocrit (volume fraction) 34 % 35-52 Automated erythrocyte mean corpuscular volume 89 [ foz_us] 80-99 Automated erythrocyte mean corpuscular h emoglobin (mass per erythrocyte) 30 pg 25-34 Automated erythrocyte mean corpuscular h emoglobin concentration measurement (mass/volume) 34 g/dL 32-36 Automated erythrocyte distribution width ratio 13. 0 % 10.0- 14.5 Automated blood platelet count (count/volume) 209 10*3/uL 130-400 Automated blood platelet mean volume measurement 10.9 [foz_us] 7.4-10.4 Automated blood neutrophils/100 leukocytes 78 % 42-75 Automated blood lymphocytes/100 leukocytes 14 % 12-44 Blood monocytes/100 leukocytes 6 % 0-12 Automated blood eosinophils/100 leukocytes 1 % 0-10 Automated blood basophils/100 leukocytes 0 % 0-10 Blood neutrophils automated count (number/volume) 8.6 10*3 1.8-7.8 Blood lymphocytes automated count (number/volume) 1.5 10*3 1.0-4.0 Blood monocytes automated count (number/volume) 0. 7 10*3 0.0-1.0 Automated eosinophil count 0.2 10*3/uL 0 .0-0.3 Automated blood basophil count (count/volume) 0.0 10*3/uL 0.0-0.1 Comprehensive metabolic panel - 02/22/19 04:40 Serum or plasma sodium measurement (moles/volume) 137 mmol/L 135-145 Serum or plasma potassium measurement (moles/volume) 4.2 mmol/L 3.6-5.0 Serum or plasma chloride measurement (moles/volume) 107 mmol/L 98-107 Carbon dioxide 17 mmol/L 21-32 Serum or plasma anion gap determination (moles/volume) 13 mmol/L 5-14 Serum or plasma urea nitrogen measurement (mass/volume ) 10 mg/dL 7-18 Serum or plasma creatinine measurement (mass/volume) 0.59 mg/dL 0.60-1.30 Serum or plasma urea nitrogen/creatinine mass ratio 17 NRG Serum or plasma creatinine measurement w ith calculation of estimated glomerular filtration rate > NRG Serum or plasma glucose measurement (mass/volume) 87 mg/dL 70-105 Serum or plasma calcium measurement (mass/volume) 9.0 mg/dL 8.5-10.1 Serum or plasma total bilirubin measurement (mass/volu me) 0.8 mg/dL 0.1-1.0 Serum or plasma alkaline phosphatase chloe surement (enzymatic activity/volume) 97 U/L 40-136 Serum or plasma aspartate aminotransfera se measurement (enzymatic activity/volume) 20 U/L 5-34 Serum or plasma alanine aminotransferase measurement (enzymatic activity/volume) 19 U/L 0-55 Serum or plasma protein measurement (mass/volume) 6.6 g/dL 6.4-8.2 Serum or plasma albumin measurement (mass/volume) 3.5 g/dL 3.2-4.5 CALCIUM CORRECTED 9.4 mg/dL 8.5-10.1 [id number] - 02/22/19 04:40 [id number] SPECIMEN AVAILABLE NRG Complete urinalysis with reflex to cultu re - 02/28/19 03:00 Urine color determination YELLOW NRG Urine clarity determination CLEAR NR G Urine pH measurement by test strip 7 5-9 Specific gravity of urine by test strip 1.005 1.016-1.022 Urine protein assay by test strip, semi-quantitative NEGATIVE NEGATIVE Urine glucose detection by automated test strip NE GATIVE NEGATIVE Erythrocytes detection in urine sediment by light micr oscopy NEGATIVE NEGATIVE Urine ketones detection by automated test strip NE GATIVE NEGATIVE Urine nitrite detection by test strip NEGATIVE NEGATIVE Urine total bilirubin detection by test strip NEGA TIVE NEGATIVE Urine urobilinogen measurement by automated test strip (mass/volume) NORMAL NORMAL Urine leukocyte esterase detection by dipstick 1+ NEGATIVE Automated urine sediment erythrocyte cou nt by microscopy (number/high power field) NONE NRG Automated urine sediment leukocyte count by microscopy (number/high power field) [HPF] NRG Bacteria detection in urine sediment by light microsco py TRACE NRG Squamous epithelial cells detection in u rine sediment by light microscopy 0-2 NRG Crystals detection in urine sediment by light microsco py NONE NRG Casts detection in urine sediment by light microscopy NONE NRG Mucus detection in urine sediment by light microscopy NEGATIVE NRG Complete urinalysis with reflex to culture NO NRG Other elements identification in urine sediment by lig ht microscopy FEW SPERM NRG Complete blood count (CBC) with automate d white blood cell (WBC) differential - 02/28/19 03:25 Blood leukocytes automated count (number/volume) 10.3 10*3/uL 4.3-11.0 Blood erythrocytes automated count (number/volume) 3.80 10*6/uL 4.35-5.85 Venous blood hemoglobin measurement (mass/volume) 11.5 g/dL 11.5-16.0 Blood hematocrit (volume fraction) 33 % 35-52 Automated erythrocyte mean corpuscular volume 88 [ foz_us] 80-99 Automated erythrocyte mean corpuscular h emoglobin (mass per erythrocyte) 30 pg 25-34 Automated erythrocyte mean corpuscular h emoglobin concentration measurement (mass/volume) 35 g/dL 32-36 Automated erythrocyte distribution width ratio 13. 0 % 10.0- 14.5 Automated blood platelet count (count/volume) 226 10*3/uL 130-400 Automated blood platelet mean volume measurement 10.9 [foz_us] 7.4-10.4 Automated blood neutrophils/100 leukocytes 70 % 42-75 Automated blood lymphocytes/100 leukocytes 19 % 12-44 Blood monocytes/100 leukocytes 8 % 0-12 Automated blood eosinophils/100 leukocytes 2 % 0-10 Automated blood basophils/100 leukocytes 0 % 0-10 Blood neutrophils automated count (number/volume) 7.3 10*3 1.8-7.8 Blood lymphocytes automated count (number/volume) 2.0 10*3 1.0-4.0 Blood monocytes automated count (number/volume) 0. 8 10*3 0.0-1.0 Automated eosinophil count 0.2 10*3/uL 0 .0-0.3 Automated blood basophil count (count/volume) 0.0 10*3/uL 0.0-0.1 Blood type T Indirect antibody screen pa kathrine - 02/28/19 03:25 ABO+Rh group AN NRG Transfusion band number [id number] NR Blood group antibody screen NEGATIVE NR G Complete blood count (CBC) with automate d white blood cell (WBC) differential - 03/01/19 06:05 Blood leukocytes automated count (number/volume) 12.2 10*3/uL 4.3-11.0 Blood erythrocytes automated count (number/volume) 3.15 10*6/uL 4.35-5.85 Venous blood hemoglobin measurement (mass/volume) 9.4 g/dL 11.5-16.0 Blood hematocrit (volume fraction) 28 % 35-52 Automated erythrocyte mean corpuscular volume 89 [ foz_us] 80-99 Automated erythrocyte mean corpuscular h emoglobin (mass per erythrocyte) 30 pg 25-34 Automated erythrocyte mean corpuscular h emoglobin concentration measurement (mass/volume) 34 g/dL 32-36 Automated erythrocyte distribution width ratio 12. 7 % 10.0- 14.5 Automated blood platelet count (count/volume) 208 10*3/uL 130-400 Automated blood platelet mean volume measurement 10.5 [foz_us] 7.4-10.4 Automated blood neutrophils/100 leukocytes 75 % 42-75 Automated blood lymphocytes/100 leukocytes 17 % 12-44 Blood monocytes/100 leukocytes 7 % 0-12 Automated blood eosinophils/100 leukocytes 2 % 0-10 Automated blood basophils/100 leukocytes 0 % 0-10 Blood neutrophils automated count (number/volume) 9.1 10*3 1.8-7.8 Blood lymphocytes automated count (number/volume) 2.0 10*3 1.0-4.0 Blood monocytes automated count (number/volume) 0. 9 10*3 0.0-1.0 Automated eosinophil count 0.2 10*3/uL 0 .0-0.3 Automated blood basophil count (count/volume) 0.0 10*3/uL 0.0-0.1 RH IMMUNE GLOBULIN RHOPHYLAC - 03/01/19 06:05 RH IMMUNE GLOBULIN RHOPHYLAC PRSMD TRFSD 03/01/19 1701 NRG cell screen - 03/01/19 06:05 SCREEN LOT NUMBER [id number] NRG Transfusion band number [id number] NRG [id number] 1 300ug NRG Erythrocytes./1000 erythrocytes 03/18/19 NRG cell screen NEGATIVE NEGATIVE cell screen 07/15/21 NRG Lot number [id number] NRG Encounters ACCT No. Visit Date/Time Discharge Status Pt. Type Provider Facility Loc./Unit Complaint [id number] 02/28/2019 03:25:00 11:45:00 DIS Inpatient TERESA RODRIGUEZ DO [facility] LDRP WAS HAVING CONTRACTIONS [id number] 02/22/2019 03:59:00 12:25:00 DIS Outpatient LIGIA WILHELM DO [facility] WSo CONTRACTIONS [id number] 11/26/2018 15:54:00 23:59:59 CLS Outpatient LIGIA WILHELM DO [facility] RAD 23 WEEKS GESTATION OF Rosa BRODY
[2020-05-17] MEDS ORDERED: HYDR-4226 PO (09:24)
[2020-05-17] MEDS ORDERED: DOCU-143 PO (09:24)
== END 2020-05-15 20:30 | disposition home or self-care (01) ==
LOC: EDUNIT# 19:09 → ER 19:10
DX: N83.201 Unspecified ovarian cyst, right side (principal); Z82.49 Family history of ischemic heart disease and other diseases of the circulatory system
CPT/HCPCS: 36415; 74177; 80053; 81000; 84703; 85025; 86141; 87088

== ENCOUNTER 2020-05-16 06:58 | Day surgery (SDC) | payer OTHER ==
[~2020-05-16] VITALS: Ht 167 cm; Wt 68.0 kg
[2020-05-16] VITALS (11 sets, daily range): BP systolic 92–121; BP diastolic 52–83
[2020-05-16 07:09] LABS: HEMOGLOBIN 13.4 G/DL (11.5-16.0); MEAN PLATELET VOLUME 10.3 FL (7.4-10.4); RED CELL DISTRIBUTION WIDTH 12.7 % (10.0-14.5); WHITE BLOOD COUNT 13.9 10^3/uL (4.3-11.0)
[2020-05-16] MEDS ORDERED: ONDANSETRON 4 MG/2 ML (SDV) Z0FRAN ONE (07:19)
[2020-05-16] MEDS ORDERED: ROCURONIUM 10 MG/ML 5 ML SYRINGE IV ONE (07:19)
[2020-05-16] MEDS ORDERED: fentaNYL INJECTION 100 MCG/2 ML AMP ONE ×2 (07:19)
[2020-05-16] MEDS ORDERED: proPOfol 200 MG/20 ML (DIPRIVAN) VIAL IV ONE (07:19)
[2020-05-16] MEDS ORDERED: LIDOCAINE PF 2% 5 ML (XYLOCAINE) VIAL ONE (07:19)
[2020-05-16] MEDS ORDERED: DEXAMETHASONE 10 MG/ML (DECADRON) 1 ML VIAL ONE (07:19)
[2020-05-16] MEDS ORDERED: MIDAZOLAM 2 MG/2 ML (VERSED) VIAL ONE (07:19)
[2020-05-16] MEDS ORDERED: BUP/EPI 0.5% 1:200,000 (SENSORCAINE) 30 ML VIAL ONE (07:21)
[2020-05-16] MEDS ORDERED: ceFAZolin INJECTION 1,000 MG ONE (07:22)
[2020-05-16] MEDS ORDERED: metroNIDAZOLE 500MG/100ML IVPB 100 ML ONE (07:23)
[2020-05-16] MEDS ORDERED: WATER (STERILE) FOR INJECTION 10 ML ONE (07:23)
[2020-05-16] MEDS ORDERED: ceFAZolin INJECTION 1,000 MG in WATER (STERILE) FOR INJECTION 10 ML IV ONE (07:30)
[2020-05-16] MEDS ORDERED: CATHETER FLUSH 10 ML SYR IV PRN (07:30)
[2020-05-16] MEDS ORDERED: metroNIDAZOLE 500 MG/100 ML IVPB (PRE-MIX) IV ONE (07:30)
--- OUTSIDE RECORDS SUMMARY | 2020-05-16 07:30 | XMS REPORT | Continuity of Care Document ---
Author Organization Unknown Address Unknown Phone Unavailable Allergies Active Description Code Type Severity Reaction Onset Reported/Identified Relationship to Patient Clinical Status Yes No Known Drug Allergies [id number] Drug Allergy Unknown N/A 02/22/2019 Medications There [...] 38 WEEKS GESTATION OF 03/02/2019 SEALS DO, TERESA E Ot D50.9 IRON DEFICIENCY ANEMIA, UNSPECIFIED 03/02/2019 SEALS DO TEERSA E Ot O34.2 11 MATERN CARE FOR [...] Code Description Performed By Per formed On [id number] RE PAIR PERINEUM MUSCLE, OPEN APPROACH 02/28/2019 [id number] DE LIVERY OF PRODUCTS OF CONCEPTION, EXTE [...] g/dL 3.2-4.5 CALCIUM CORRECTED 9.4 mg/dL 8.5-10.1 [id number] - 02/22/19 04:40 [id number] SPECIMEN AVAILABLE NRG Complete urinalysis with reflex [...] ABO+Rh group AN NRG Transfusion band number [id number] NR Blood group antibody screen NEGATIVE NR [...] screen - 03/01/19 06:05 SCREEN LOT NUMBER [id number] NRG Transfusion band number [id number] NRG [id number] 1 300ug NRG Erythrocytes./1000 erythrocytes 03/18/19 NRG cell screen NEGATIVE NEGATIVE cell screen 07/15/21 NRG Lot number [id number] NRG Encounters ACCT No. Visit Date/Time Discharge Status Pt. Type Provider Facility Loc./Unit Complaint [id number] 02/28/2019 03:25:00 11:45:00 DIS Inpatient TERESA RODRIGUEZ DO [facility] LDRP WAS HAVING CONTRACTIONS [id number] 02/22/2019 03:59:00 12:25:00 DIS Outpatient LIGIA WILHELM DO [facility] WSo CONTRACTIONS [id number] 11/26/2018 15:54:00 23:59:59 CLS Outpatient LIGIA WILHELM DO [facility] RAD 23 WEEKS GESTATION OF Rosa BRODY
[2020-05-16] MEDS ORDERED: LACTATED RINGERS 1,000 ML IV PRN (07:54)
[2020-05-16] MEDS ORDERED: HYDROmorphone 2 MG/ML VIAL (DILAUDID) ONE (08:45)
[2020-05-16] MEDS ORDERED: SEVOFLURANE (ULTANE) 15 ML INHAL SOLN ONE (08:52)
[2020-05-16] MEDS ORDERED: KETOROLAC 30 MG/ML VIAL ONE (08:59)
[2020-05-16] MEDS ORDERED: LACTATED RINGERS 1,000 ML IV SCH (09:14)
--- NOTE | 2020-05-16 09:14 | Progress Note-Post Operative ---
Post-Operative Progess Note Surgeon (s)/Forestry Hunter (s) Surgeon LISETH AUSTIN DO Forestry Hunter: na Pre-Operative Diagnosis RLQ ABDOMINAL PAIN Post-Operative Diagnosis ACUTE APPENDICITIS Procedure & Operative Findings Date of Procedure 05/16/20 Procedure Performed/Findings LAPAROSCOPIC APPENDECTOMY Anesthesia Type GENERAL Estimated Blood Loss Estimated blood loss (mL): MINIMAL Specimens/Packing Specimens Removed APPENDIX LISETH AUSTIN DO May 16, 2020 09:13
[2020-05-16] MEDS ORDERED: MEPERIDINE (DEMEROL) INJ 50 MG/ML IVP ONE (09:15)
[2020-05-16] MEDS ORDERED: PROMETHAZINE INJ 25 MG/ML (PHENERGAN) AMP IVP ONE (09:15)
[2020-05-16] MEDS ORDERED: ONDANSETRON 4 MG/2 ML (SDV) Z0FRAN IV PRN (09:15)
[2020-05-16] MEDS ORDERED: morphine INJ 4 MG/ML 1 ML (VIAL/SYRINGE) IVP PRN (09:15)
--- NOTE | 2020-05-16 09:20 | Progress Note-Post Operative ---
Post-Operative Progess Note Surgeon (s)/Sub Prior (s) Surgeon LISETH AUSTIN DO Sub Prior: na Pre-Operative Diagnosis RLQ ABDOMINAL PAIN Post-Operative Diagnosis ACUTE APPENDICITIS Procedure & Operative Findings Date of Procedure 05/16/20 Procedure Performed/Findings PROCEDURE: Laparoscopic appendectomy. COMPLICATIONS: None. INDICATIONS: The patient is a 30 year old female who has been having right lower quadrant abdominal pain. Patient's exam consistent with appendicitis. I discussed risk and benefits of diagnostic laparoscopy all other indicated procedures and possible appendectomy which she understnads and wishes to proceed. Possiblity of no patholgoy found including normal appendix. The patient understands the risks and benefits and wishes to proceed. Consent was signed on the chart. DESCRIPTION OF PROCEDURE: The patient was taken to the operating suite, prepped and draped in a sterile fashion. Timeout was performed. Local anesthetic was infiltrated just above the umbilicus and 11-blade scalpel was used to make a skin incision. Cautery was used to dissect down to the fascia and scored. Kochers were used to grasp and elevate it and the abdomen was then entered. A 0 Vicryl was placed in a dydlfy-da-lfmdu fashion for closure at the end of the case. The balloon trocar was inserted into the abdomen and pneumoperitoneum was achieved. Under direct visualization of the laparoscope, a 5 mm trocar was placed in the suprapubic region and a 5 mm trocar was placed in the left lower quadrant. Appendix was located, walled off and inflamed, appearing to start to look necrotic. The base of the appendix was dissected around. Once at the base an Endo-TYLOR 2.5 stapler was then fired across the base of the appendix. The mesoappendix was then divided. It was then placed in an Endobag and removed through the 12 mm trocar site. The abdomen was then irrigated and suctioned. No other pathology noted. The abdomen was then desufflated and the trocars were removed. The 0 Vicryl placed at the beginning of the case was then tied closing the 12 mm fascial defect. The skin was then closed using 4-0 Monocryl in a subcuticular fashion. The abdomen was then washed and dried and Skin Affix was placed over the incisions. The patient tolerated the procedure well without any complications and was taken to the recovery room in stable condition. Anesthesia Type general Estimated Blood Loss Estimated blood loss (mL): minimal Specimens/Packing Specimens Removed appendix LISETH AUSTIN DO May 16, 2020 09:20
--- NOTE | 2020-05-16 10:07 | NUR ---
MEGAN HOWARD admitted to room 406-1, with an admitting diagnosis of Appendectomy, on 05/16/20 from PACU via bed, accompanied by staff.MEGAN HOWARD introduced to surroundings, call light, bed controls, phone, TV, temperature control, lights, meal times, smoking policy, visitor policy, side rail policy, bathrooms and showers. Patient Rights given to patient in the handbook. MEGAN HOWARD verbalizes understanding that [facility] is not responsible for the loss or damage to any personal effects or valuables that are kept in the patients posession during their hospitalization. MEGAN HOWARD verbalizes understanding of Interdisciplinary Patient Education. Patient and/or family were informed about the Rapid Response Team and its purpose.
--- NOTE | 2020-05-16 10:24 | Anesthesia-General Post-Op ---
General Patient Condition Mental Status/LOC: Same as Preop Cardiovascular: Satisfactory Nausea/Vomiting: Absent Respiratory: Satisfactory Pain: Controlled Complications: Absent Post Op Complications Complications None Follow Up Care/Instructions Patient Instructions None needed. Anesthesia/Patient Condition Patient Condition Patient is doing well, no complaints, stable vital signs, no apparent adverse anesthesia problems. No complications reported per nursing. REED BLAKE CRNA May 16, 2020 10:24
[2020-05-16] MEDS: IBUPROFEN 800 MG (MOTRIN) TAB PO PRN ×2 (11:11→18:04)
--- NOTE | 2020-05-16 14:51 | NUR ---
Phone Call: The pt states she feels she is receiving good support from staff and family. She is a member of [facility] [employer], but describes close pastoral relationship with [facility] [place], with whom she has visited over the phone this hospital stay.
[2020-05-16] MEDS: ceFAZolin INJECTION 1,000 MG in WATER (STERILE) FOR INJECTION 10 ML IV SCH ×2 (16:05→23:12)
[2020-05-16] MEDS: metroNIDAZOLE 500MG/100ML IVPB 100 ML IV SCH ×2 (16:05→23:12)
--- NOTE | 2020-05-16 19:30 | NUR ---
PT TEMPERATURE 37.9 C AT THIS TIME. EXCESS BLANKETS REMOVED AND ROOM TEMPERATURE LOWERED AT THIS TIME. ICE APPLIED TO PT TO PREVENT FURTHER INCREASE IN TEMPERATURE. PT TOLERATING WELL. Addendum: 05/17/20 at 0546 by ARA LORENZO RN DOCUMENTED ON WRONG PATIENT.
[2020-05-16] MEDS ORDERED: MELATONIN 10 MG TABLET PO SCH (21:00)
[2020-05-16] MEDS: HYDROcodone/APAP 5 MG/325 MG (LORTAB) TAB PO PRN (21:56)
[2020-05-17] MEDS: HYDROcodone/APAP 5 MG/325 MG (LORTAB) TAB PO PRN (02:53)
[2020-05-17 04:00] VITALS: BP 91/49
[2020-05-17] MEDS: ceFAZolin INJECTION 1,000 MG in WATER (STERILE) FOR INJECTION 10 ML IV SCH (06:49)
[2020-05-17] MEDS: metroNIDAZOLE 500MG/100ML IVPB 100 ML IV SCH (06:49)
[2020-05-17] MEDS: IBUPROFEN 800 MG (MOTRIN) TAB PO PRN (07:34)
[2020-05-17 08:43] VITALS: BP 115/75
[2020-05-17] MEDS ORDERED: DOCU-143 PO (09:24)
[2020-05-17] MEDS ORDERED: HYDR-4226 PO (09:24)
--- NOTE | 2020-05-17 09:24 | Discharge Inst-Simple/Standard ---
Discharge Inst-Standard Discharge Medications New, Converted or Re-Newed RX: RX on Chart Patient Instructions/Follow Up Plan of Care/Instructions/FU: 2 weeks rachell Activity as Tolerated: No Discharge Diet: Regular Diet Other Inst to Patient Follow up Appt: Make appointment for 2 week. Instructions: No lifting greater than 10 pounds. No strenuous activity. May shower in 24 hours, no tub bath or soaking. Use incentive spirometer at home as directed. No Smoking Skin/Wound Care: You have special glue over your incision that will fall off on it's own. Symptoms to Report: Appetite Changes, Extremity Discoloration, Numbness/Tingling, Swelling Increased, Bleeding Excessive, Eyesight Changes, Pain Increased, Urine Color Change, Constipation(Persistent), Fever over 101 degree F, Pain/Pressure in chest, Urinating Difficulty, Cough Up/Vomit Blood, Heart Beat Irreg/Pounding, Pain/Pressure in jaw, Vaginal Bleeding Increase, Cramps in feet or legs, Lightheadedness, Pain/Pressure in shoulder, Diarrhea(Persistent), Memory Changes Suddenly, Questions/Concerns, Weight gain consecutive days, Dizziness/Fainting, Nausea/Vomiting, Shortness of Breath, Weight gain over 2 pounds If questions or concerns contact your physician Or seek help at emergency department. LISETH AUSTIN DO May 17, 2020 09:24
[2020-05-17 11:22] VITALS: BP 115/75
== END 2020-05-17 11:30 | disposition home or self-care (01) ==
LOC: SDC 06:58 → 4TH 10:00 → SDC 05-17 11:30
PROVIDERS: ATTEND Surgery
DX: K35.80 Unspecified acute appendicitis (principal)
CPT/HCPCS: 44970; 84703; 85027; 87081; 88304; 94664; U0002; 36415; 87635

== ENCOUNTER → 2020-05-25 | Outpatient (CLI) | payer OTHER ==
[~2020-05-25] MED LIST changes: +DOCU-143 PO; +HYDR-4226 PO
== END ==
LOC: LAB 06:59
PROVIDERS: ATTEND Emergency Medicine
DX: R50.9 Fever, unspecified (principal); J02.9 Acute pharyngitis, unspecified; M79.10 Myalgia, unspecified site; Z20.828 Contact with and (suspected) exposure to other viral communicable diseases
CPT/HCPCS: 87635

== ENCOUNTER → 2020-10-23 | Outpatient (CLI) | payer OTHER ==
[~2020-10-23] MED LIST changes: +IOHEXOL 240 MGI/ML 50 ML (OMNIPAQUE) VIAL IV ONE
--- NOTE | 2020-10-24 08:42 | Diagnostic Imaging Report ---
INDICATION: Female infertility. Fluoroscopy was performed during performance of hysterosalpingogram by Dr. Spencer. 40 seconds of fluoroscopic time was utilized. Contrast was injected into the endometrial canal during fluoroscopic observation. Unfortunately, due to technical issues the images could not be saved. After discussing with Dr. Castro, she stated that there was free spillage of contrast from both fimbrial ends. The delayed image does show contrast layering within the pelvis. IMPRESSION: Bilateral fallopian tube patency. Dictated by: Dictated on workstation # [id number]
== END ==
LOC: RAD 10:33
PROVIDERS: ATTEND Obstetrics & Gynecology
DX: N97.1 Female infertility of tubal origin (principal)
CPT/HCPCS: 58340; 74740; 84703

== ENCOUNTER → 2021-09-02 | Outpatient (CLI) | payer OTHER ==
[~2021-09-02] MED LIST changes: -IOHEXOL 240 MGI/ML 50 ML (OMNIPAQUE) VIAL IV ONE
--- NOTE | 2021-09-02 17:56 | Diagnostic Imaging Report ---
INDICATION: Twin gestations. TECHNIQUE: Multiple real-time grayscale images were obtained over the gravid uterus. COMPARISON: None FINDINGS: There is no prior study during this for comparison. Twin intrauterine gestations are visualized. Twin A measured 33 weeks 1 day in size and was in cephalic presentation. Amniotic fluid index for twin A was 14.24 centers. Placenta is anterior with no evidence of previa. Heart rate was 1 29 bpm. For twin B, measurements were 32 weeks 0 days in size. Amniotic fluid index is 14.24 cm. Placenta was lateral on the right side with no evidence of previa. Heart rate was 138 bpm. Biometrical measurements are as follows: Biparietal 8.64 cm, age 34 weeks 6 days. Head circumference 30.56 cm, age 31 weeks 1 days. Abdominal circumference 27.71 cm, age 31 weeks 6 days. Femur length 6.05 cm, age 31 weeks 4 days. Sonographic estimate age: 33 weeks 1 days. Sonographic estimated date of delivery: 10-20-21. Estimated Weight: 1913 gm (+/- 279 gm). LMP percentile: 39%. heart rate: 129 beats per minute. number: 1 of 2. IMPRESSION: Live twin intrauterine gestations as described above. Baby A measured 33 weeks 1 day in size and baby B measured 32 weeks 0 days in size. Full survey was not performed. Dictated on workstation # [id number]
== END ==
LOC: RAD 14:49
PROVIDERS: ATTEND Obstetrics & Gynecology
DX: O30.041 Twin pregnancy, dichorionic/diamniotic, first trimester (principal); Z3A.33 33 weeks gestation of pregnancy
CPT/HCPCS: 76805; 76816

== ENCOUNTER 2021-10-01 05:31 | Outpatient (CLI) | payer OTHER ==
[~2021-10-01] VITALS: Ht 167.7 cm; Wt 90.9 kg
[2021-10-01] MEDS ORDERED: OMEP40CA6 PO (15:37)
== END 2021-10-01 15:42 | disposition home or self-care (01) ==
LOC: PREOP 05:31
PROVIDERS: ATTEND Obstetrics & Gynecology
DX: Z01.818 Encounter for other preprocedural examination (principal)

== ENCOUNTER → 2021-10-04 | Outpatient (CLI) | payer OTHER ==
[~2021-10-04] MED LIST changes: +OMEP40CA6 PO
--- NOTE | 2021-10-04 17:41 | Diagnostic Imaging Report ---
INDICATION: Assess growth and biophysical profile of a dichorionic diamniotic twin . TECHNIQUE: Multiple real-time grayscale images were obtained over the gravid uterus. COMPARISON: 09/02/2021. FINDINGS: Based on preestablished measurements, the estimated gestational age is 36 weeks and 5 days. On today's examination, the estimated gestational age of baby A by biometrical measurements is 35 weeks and 5 days. The estimated gestational age of baby B by biometrical measurements is 39 weeks and 4 days. Baby A amniotic fluid volume is 14.23 cm. Baby B amniotic fluid volume is 14.23 cm. The placenta of both gestations appear unremarkable. Baby A's placenta is located anteriorly and baby B's placenta laterally and to the right. There are no findings of previa. Baby A heart motion is 124 bpm. Baby B heart rate is 127 bpm. Both of the gestations demonstrate an appropriate biophysical profile score with each gestation scoring 8 out of 8. IMPRESSION: 1. Both gestations have an appropriate biophysical profile score of 8 out of 8. Each gestation demonstrates appropriate amniotic fluid volume and appropriate cardiac motion. 2. There is now, however, a measured discrepancy in terms of the size of the gestations which may be in part attributable to differences in measurement techniques. Would, however, suggest close interval follow-up and reassessment. Dictated by: Dictated on workstation # [id number]
== END ==
LOC: RAD 15:15
PROVIDERS: ATTEND Obstetrics & Gynecology
DX: O36.5999 Maternal care for other known or suspected poor fetal growth, unspecified trimester, other fetus (principal); O30.041 Twin pregnancy, dichorionic/diamniotic, first trimester; Z3A.00 Weeks of gestation of pregnancy not specified
CPT/HCPCS: 76805; 76810; 76819

== ENCOUNTER 2021-10-08 05:59 | Inpatient (IN) | payer OTHER ==
[~2021-10-08] VITALS: Ht 167.7 cm; Wt 92.5 kg
[2021-10-08] VITALS (12 sets, daily range): BP systolic 106–136; BP diastolic 67–92
[2021-10-08] MEDS ORDERED: ceFAZolin 2 GM IV Premixed 50 ML IV ONE (06:15)
[2021-10-08] MEDS ORDERED: METOCLOPRAMIDE INJ 10 MG/2 ML (REGLAN) IV ONE (06:15)
[2021-10-08] MEDS ORDERED: FAMOTIDINE 20MG/2ML IV (PEPCID) IV ONE (06:15)
[2021-10-08] MEDS ORDERED: LACTATED RINGERS 1,000 ML IV SCH (06:15)
[2021-10-08] MEDS ORDERED: CITRIC ACID/SOB CIT (BICITRA) 30 ML UDC PO ONE (06:15)
[2021-10-08] MEDS ORDERED: ONDANSETRON 4 MG/2 ML (SDV) Z0FRAN ONE ×2 (06:39→06:51)
[2021-10-08] MEDS ORDERED: ONDANSETRON 4 MG/2 ML (SDV) Z0FRAN IV ONE (06:45)
[2021-10-08 06:50] LABS: BASOPHILS % (AUTO) 0 % (0-10); EOSINOPHILS # (AUTO) 0.1 10^3/uL (0.0-0.3); EOSINOPHILS % (AUTO) 1 % (0-10); HEMATOCRIT 30 % (35-52); HEMOGLOBIN 9.6 g/dL (11.5-16.0); LYMPHOCYTES # (AUTO) 1.6 10^3/uL (1.0-4.0); LYMPHOCYTES % (AUTO) 17 % (12-44); MEAN CORPUSCULAR HEMOGLOBIN 26 pg (25-34); MEAN CORPUSCULAR HGB CONC 32 g/dL (32-36); MEAN CORPUSCULAR VOLUME 82 fL (80-99); MEAN PLATELET VOLUME 11.3 fL (9.0-12.2); MONOCYTES # (AUTO) 0.7 10^3/uL (0.0-1.0); MONOCYTES % (AUTO) 7 % (0-12); NEUTROPHILS # (AUTO) 7.3 10^3/uL (1.8-7.8); NEUTROPHILS % (AUTO) 75 % (42-75); PLATELET COUNT 219 10^3/uL (130-400); WHITE BLOOD COUNT 9.8 10^3/uL (4.3-11.0)
[2021-10-08] MEDS ORDERED: OXYTOCIN PRE-MIX DRIP 1,000 ML IV ONE (06:51)
[2021-10-08] MEDS ORDERED: fentaNYL INJ 100 MCG/2 ML AMP ONE (06:51)
[2021-10-08 06:59] LABS: BILIRUBIN,URINE NEGATIVE (NEGATIVE); CLARITY,URINE CLEAR; COLOR,URINE ORANGE; GLUCOSE, URINE (UA) NEGATIVE (NEGATIVE); KETONES,URINE NEGATIVE (NEGATIVE); LEUKOCYTE ESTERASE ,URINE NEGATIVE (NEGATIVE); NITRITE,URINE NEGATIVE (NEGATIVE); PROTEIN,URINE NEGATIVE (NEGATIVE)
[2021-10-08 07:22] LABS: BACTERIA,URINE NEGATIVE /HPF
[2021-10-08] MEDS: LACTATED RINGERS 1,000 ML IV SCH ×3 (07:25→23:07)
--- NOTE | 2021-10-08 07:42 | History & Physical-OB/GYN ---
JAILENE FRY 10/08/21 0742: OB - Chief Complaint & HPI Date/Time Date of Admission: Date of Admission: Oct 08, 2021 at 05:59 Date seen by a Provider: Oct 08, 2021 Time Seen by a Provider: 08:00 Chief Complaint/History OB-Reason for Admission/Chief: Section Hx : 4 Hx Para: 3 Expected Date of Delivery: Oct 27, 2021 Gestational Age in Weeks: 37 Gestational Age in Days: 2 Indication for induction: other (Dicorionic Diamnotic Twins recommended delivery at 37-38 weeks per [facility]) Indication for : other (Patient is high risk due to twins and history of prior ) Allergies and Home Medications Allergies Coded Allergies: No Known Drug Allergies (Unverified , 05/15/20) Patient Home Medication List Home Medication List Reviewed: Yes Omeprazole (Omeprazole) 40 Mg Capsule.dr, 40 MG PO DAILY, (Reported) Entered as Reported by: OLI CODY on 10/01/21 1537 Last Action: Reviewed Vit W-Ca,Fe,FA(<1 mg) ( Vitamins) 1 Each Tablet, 1 EACH PO DAILY, (Reported) Entered as Reported by: KATIA GIPSON on 02/22/19 0501 Last Action: Reviewed Discontinued Medications Acetaminophen (Acetaminophen) 500 Mg Tablet, 1,000 MG PO Q6H Discontinued Reason: No Longer Taking Prescribed by: LIGIA WILHELM on 03/02/19 0858 Docusate Sodium (Colace) 100 Mg Capsule, 100 MG PO BID Discontinued Reason: No Longer Taking Prescribed by: LISETH AUSTIN on 05/17/20 0924 Ferrous Sulfate (Ferrous Sulfate) 325 Mg Tablet, 325 MG PO DAILY@0700 Discontinued Reason: No Longer Taking Prescribed by: LIGIA WILHELM on 03/02/19 0858 Hydrocodone/Acetaminophen (Hydrocodone/Acetaminophen 5 MG/325 MG TAB) 1 Each Tablet, 1 TAB PO Q4-6HR Discontinued Reason: No Longer Taking Prescribed by: LISETH AUSTIN on 05/17/20 0924 Ibuprofen (Ibu) 600 Mg Tablet, 600 MG PO Q6H Discontinued Reason: No Longer Taking Prescribed by: LIGIA WILHELM on 03/02/19 08 Omeprazole (Omeprazole) 20 Mg Tablet.dr, 20 MG PO DAILY, (Reported) Discontinued Reason: Prescription changed Entered as Reported by: KATIA GIPSON on 02/22/19 0501 OB - History Hx of Present Care: Yes Ultrasounds: Other Abnormal Ultrasound Findings: 6% discordance between twins seen at 32 weeks. Obstetrical Complications: Other (Dichorionic diamniotic tiwns) Medical Complications: None Other Concerns: History of Pre-eclampsia in a prior Information Induced Hypertension: No Maternal Gestational Diabetes: No Hemorrhage: No Obstetrical History Hx : 4 Hx Para: 3 Hx # Term Pregnancies: 2 Hx # Pregnancies: 1 Number of Living Children: 3 Hx Termination: No Hx Multiple Gestation: No Hx Stillbirth: No Hx Complication: No Hx Induced Hypertens: Yes Hx Maternal Gestational Diabet: No Delivery History Hx Section: Yes Hx Vaginal Delivery Post C-Sec: Yes Adverse Rxn to Tranfusion: No Patient Past Medical History Maria Gongora is 31 year old female ,1,0,3 at 37.2 week gestation. She has a history of previous as well as Pre-eclampsia. Social History/Family History Alcohol Use: Denies Use Recreational Drug Use: No Smoking Cessation: Never smoker 2nd Hand Smoke Exposure: No Immunizations Tetanus Booster (TDap): Less than 5yrs Date of Influenza Vaccine: Sep 06, 2021 RPR/VDRL: Negative GBS Status: Negative OB - Admission Exam Physical Exam Vitals: Vital Signs 10/08/21 10/08/21 06:51 06:52 Temp 36.7 Pulse 73 Resp 18 B/P (MAP) 108/69 (82) Pulse Ox 99 O2 Delivery Room Air Heart: Rhythm Normal Lungs: Clear Abdomen: Non tender Extremities: Edema (minor swelling in the ankles) Reflexes: Normal Heart Rate: 140's Accelerations: Accelerations Present Decelerations: No Decelerations Short Term Variability: Present Fci Variability: Average (6-25) Labs Laboratory Tests Test 10/08/21 06:10 10/08/21 06:23 Range/Units Urine Color ORANGE Urine Clarity CLEAR Urine pH 7.0 5-9 Urine Specific [place] 1.015 L 1.016-1.022 Urine Protein NEGATIVE NEGATIVE Urine Glucose (UA) NEGATIVE NEGATIVE Urine Ketones NEGATIVE NEGATIVE Urine Nitrite NEGATIVE NEGATIVE Urine Bilirubin NEGATIVE NEGATIVE Urine Urobilinogen 0.2 < = 1.0 MG/DL Urine Leukocyte Esterase NEGATIVE NEGATIVE Urine RBC (Auto) NEGATIVE NEGATIVE Urine RBC NONE /HPF Urine WBC NONE /HPF Urine Squamous Epithelial Cells 2-5 /HPF Urine Crystals NONE /LPF Urine Bacteria NEGATIVE /HPF Urine Casts NONE /LPF Urine Mucus NEGATIVE /LPF Urine Culture Indicated NO White Blood Count 9.8 4.3-11.0 10^3/uL Red Blood Count 3.64 L 3.80-5.11 10^6/uL Hemoglobin 9.6 L 11.5-16.0 g/dL Hematocrit 30 L 35-52 % Mean Corpuscular Volume 82 80-99 fL Mean Corpuscular Hemoglobin 26 25-34 pg Mean Corpuscular Hemoglobin Concent 32 32-36 g/dL Red Cell Distribution Width 12.6 10.0-14.5 % Platelet Count 219 130-400 10^3/uL Mean Platelet Volume 11.3 9.0-12.2 fL Immature Granulocyte % (Auto) 1 % Neutrophils (%) (Auto) 75 42-75 % Lymphocytes (%) (Auto) 17 12-44 % Monocytes (%) (Auto) 7 0-12 % Eosinophils (%) (Auto) 1 0-10 % Basophils (%) (Auto) 0 0-10 % Neutrophils # (Auto) 7.3 1.8-7.8 10^3/uL Lymphocytes # (Auto) 1.6 1.0-4.0 10^3/uL Monocytes # (Auto) 0.7 0.0-1.0 10^3/uL Eosinophils # (Auto) 0.1 0.0-0.3 10^3/uL Basophils # (Auto) 0.0 0.0-0.1 10^3/uL Immature Granulocyte # (Auto) 0.1 0.0-0.1 10^3/uL OB - Assessment/Plan/Diagnosis Assessment Assessment: section Admission Dx 37 week and 2 day gestation mother with dichorionic diamniotic twins here today for a return C Section as recommended by [facility]. Admission Status: Inpatient Order (span 2 midnights) Reason for Inpatient Admission: Repeat Plan Plan: Section LIGIA WILHELM DO 10/08/21 1001: OB - Chief Complaint & HPI Date/Time Time Seen by a Provider: 07:00 Chief Complaint/History Admission Nurse Assessment Rev: Yes History of Labs A- HBsAG- Hep C - Rub I VDRL NR GBS - Other Patient is a 31 year old with history of CS for preeclampsia and then 2 deliveries This has been complicated by twin (di/di) with some dyssynchronous growth (< 6 %) Delivery recommended between 37-38 weeks by MFM Patient is, however, beginning to labor today with regular painful contractions. Was on ASA until 36 weeks Allergies and Home Medications Allergies Coded Allergies: No Known Drug Allergies (Unverified , 05/15/20) Patient Home Medication List Home Medication List Reviewed: Yes Omeprazole (Omeprazole) 40 Mg Capsule., 40 MG PO DAILY, (Reported) Entered as Reported by: OLI CODY on 10/01/21 6597 Last Action: Reviewed Vit W-Ca,Fe,FA(<1 mg) ( Vitamins) 1 Each Tablet, 1 EACH PO DAILY, (Reported) Entered as Reported by: KATIA GIPSON on 02/22/19 0501 Last Action: Reviewed Discontinued Medications Acetaminophen (Acetaminophen) 500 Mg Tablet, 1,000 MG PO Q6H Discontinued Reason: No Longer Taking Prescribed by: LIGIA WILHELM on 03/02/19 0858 Docusate Sodium (Colace) 100 Mg Capsule, 100 MG PO BID Discontinued Reason: No Longer Taking Prescribed by: LISETH AUSTIN on 05/17/20 0924 Ferrous Sulfate (Ferrous Sulfate) 325 Mg Tablet, 325 MG PO DAILY@0700 Discontinued Reason: No Longer Taking Prescribed by: LIGIA WILHELM on 03/02/19 0858 Hydrocodone/Acetaminophen (Hydrocodone/Acetaminophen 5 MG/325 MG TAB) 1 Each Tablet, 1 TAB PO Q4-6HR Discontinued Reason: No Longer Taking Prescribed by: LISETH AUSTIN on 05/17/20 0924 Ibuprofen (Ibu) 600 Mg Tablet, 600 MG PO Q6H Discontinued Reason: No Longer Taking Prescribed by: LIGIA WILHELM on 03/02/19 0858 Omeprazole (Omeprazole) 20 Mg Tablet., 20 MG PO DAILY, (Reported) Discontinued Reason: Prescription changed Entered as Reported by: KATIA GIPSON on 02/22/19 0501 OB - History Information Induced Hypertension: No Maternal Gestational Diabetes: No Hemorrhage: No Obstetrical History Hx Complication: Yes Hx Induced Hypertens: Yes Delivery History Hx Dystocia: No Hx Forceps Assisted Delivery: No Hx Vacuum Extraction Assisted: No Hx Placenta Abnormality: No Hx Distress: No Hx Large For Gestational Age I: No Hx Small for Gestational Age I: No Hx Section: Yes Hx Vaginal Delivery Post C-Sec: Yes Hx Blood Disorders: No OB - Assessment/Plan/Diagnosis Assessment Admission Dx previous section sam twins history of preeclampsia Rh - Admission Status: Inpatient Order (span 2 midnights) Reason for Inpatient Admission: repeat section Supervisory-Addendum Brief Verification & Attestation Participated in pt care: history Personally performed: history, supervision of care Care discussed with: Medical Student Procedures: n/a I have participated in the history and physical of this preoperative patient and have made additions where necessary. I agree with assessment. Will proceed with repeat CS on 10/08/2021. Risks of procedure, including but not limited to, bleeding, infection, injury to bowel, bladder and ureter, injury to fetus. Blood clots, DVT/PE, anesthesia complications. Will use prophylactic antibiotics and SCDs JAILENE FRY Oct 08, 2021 07:42 LIGIA WILHELM DO Oct 08, 2021 10:01
--- NOTE | 2021-10-08 07:49 | Progress Note-Pre Operative ---
Pre-Operative Progress Note H&P Reviewed The H&P was reviewed, patient examined and no changes noted. Date Seen by Provider: Oct 08, 2021 Time Seen by Provider: 07:25 Date H&P Reviewed: Oct 08, 2021 Time H&P Reviewed: 07:15 Pre-Operative Diagnosis: di/di twins, history of previous section LIGIA WILHELM DO Oct 08, 2021 07:49
[2021-10-08] MEDS ORDERED: TETANUS,DIPTH,PERTUSS P/F (BOOSTRIX) 0.5 ML VIAL IM SCH (09:15)
[2021-10-08] MEDS ORDERED: OXYTOCIN PRE-MIX DRIP 500 ML IV SCH (09:15)
[2021-10-08] MEDS ORDERED: morphine INJ 4 MG/ML 1 ML (VIAL/SYRINGE) IV PRN (09:15)
[2021-10-08] MEDS ORDERED: NALOXONE 0.4 MG/ML 1 ML (NARCAN) VIAL IV PRN (09:15)
[2021-10-08] MEDS ORDERED: MEASLES,MUMPS,RUBELLA 1 EA INJ SC SCH (09:15)
[2021-10-08] MEDS ORDERED: PHENYLEPHRINE 100 MCG/ML 10 ML (ANESTHESIA) SYR ONE (09:32)
[2021-10-08] MEDS ORDERED: BUPIVACAINE 0.5% 30 ML (SENSORCAINE) VIAL ONE (09:36)
[2021-10-08] MEDS: KETOROLAC 30 MG/ML VIAL IV SCH ×3 (10:00→21:59)
--- NOTE | 2021-10-08 10:04 | Cesarean Section Operative ---
Procedure Procedure Note Pre-operative Diagnosis: Maria Gongora is a (31 /Para 4 / 3, Gestational Age 37 2/7 weeks, sam twins, growth discordance (< 6 %), Rh - Post-operative Diagnosis: same Procedure: Repeat low transverse section Physician: LIGIA WILHELM Sales Superintendent: Roosevelt Abrams, MS III Estimated blood loss: 400 mL Disposition: stable x 2 Findings: Viable male infants, Apgars 8/9 8/9, weight 6#8ounces 7#4ounces, intact placenta, 3vc, normal appearing uterus, tubes, and ovaries. Indications:Maria Gongora is a 31 /Para 4 / 3,Gestational Age 37 2/7 weeks, sam twins, growth discordance (< 6 %), Rh -, with history of previous section presents for repeat section. Procedure Details: The patient was seen in pre-op and the procedure was discussed with the patient in full, including the risks, benefits, and alternatives. All questions were answered. The patient was taken to the operating room and a time out was performed, verifying patient and procedure. After spinal anesthesia was placed by our anesthesia colleagues, the patient was placed in the dorsal supine with leftward tilt for uterine displacement.~ Her abdomen was then prepped and draped in the typical sterile fashion. A Pfannenstiel skin incision was made using a scalpel and carried down through the underlying fascia. The fascia was incised in the midline and tented up using Christal clamps. On both the inferior and superior fascia side the rectus muscle was dissected off bluntly and sharply using Blanco scissors. The peritoneum was identified and entered bluntly in the midline. This was then stretched laterally using manual strength. After entering the abdominal cavity and confirming lack of intraperitoneal adhesions, a large Sony retractor was placed and the lower uterine segment was visualized. A scalpel was utilized to make a low transverse uterine incision. Amniotomy was performed with an Allis clamp with return of clear fluid. The head of A was grasped and brought to the level of the incision. Fundal pressure was applied and infant was delivered without difficulty. Mouth and nares were suctioned with bulb suction. After the umbilical cord was clamped and cut, the was handed off to the pediatric staff. B was then gently moved toward the incision and amniotomy was performed with an Allis clamp with return of clear fluid. The head of B was grasped and brought to the level of the incision. Fundal pressure was applied and the infant was delivered without difficulty. A sample of cord blood was then obtained. The placentas were delivered intact via uterine massage and marked accordingly. The uterus was cleared of all clots and debris. The uterine incision was closed using 0 Vicryl in a running locked fashion. A second imbricated layer was placed using 0 Vicryl in a running fashion as well. The abdominal gutters were cleared of all clots and debris. A final check of the uterine incision showed it to be hemostatic. The peritoneum was closed using 3-0 Vicryl in a running fashion. The rectus muscles were brought back together in the midline with a loose figure of 8 stitch of 3-0 Vicryl. The fascia was closed with 0 PDS in a running fashion. The subcutaneous space was hemostatic, and irrigated. The subcutaneous space was closed with 0 Plain in several single interrupted stitches. The skin was then closed using 4-0 Monocryl in a running subcuticular fashion. The skin edges were reapproximated together and were hemostatic. A pressure dressing was applied. All sponge, lap and needle counts were correct at the end of the procedure per nursing. Vitals - Labs Vital Signs - I&O Vital Signs Date Time Temp Pulse Resp B/P (MAP) Pulse Ox O2 Delivery O2 Flow Rate FiO2 10/08/21 06:52 36.7 73 18 99 Room Air 10/08/21 06:51 36.7 73 18 108/69 (82) 99 Room Air Labs Laboratory Tests 10/08/21 06:10: Urine Color ORANGE, Urine Clarity CLEAR, Urine pH 7.0, Urine Specific [place] 1.015L, Urine Protein NEGATIVE, Urine Glucose (UA) NEGATIVE, Urine Ketones NEGATIVE, Urine Nitrite NEGATIVE, Urine Bilirubin NEGATIVE, Urine Urobilinogen 0.2, Urine Leukocyte Esterase NEGATIVE, Urine RBC (Auto) NEGATIVE, Urine RBC NONE, Urine WBC NONE, Urine Squamous Epithelial Cells 2-5, Urine Crystals NONE, Urine Bacteria NEGATIVE, Urine Casts NONE, Urine Mucus NEGATIVE, Urine Culture Indicated NO 10/08/21 06:23: White Blood Count 9.8, Red Blood Count 3.64L, Hemoglobin 9.6L, Hematocrit 30L, Mean Corpuscular Volume 82, Mean Corpuscular Hemoglobin 26, Mean Corpuscular Hemoglobin Concent 32, Red Cell Distribution Width 12.6, Platelet Count 219, Mean Platelet Volume 11.3, Immature Granulocyte % (Auto) 1, Neutrophils (%) (Auto) 75, Lymphocytes (%) (Auto) 17, Monocytes (%) (Auto) 7, Eosinophils (%) (Auto) 1, Basophils (%) (Auto) 0, Neutrophils # (Auto) 7.3, Lymphocytes # (Auto) 1.6, Monocytes # (Auto) 0.7, Eosinophils # (Auto) 0.1, Basophils # (Auto) 0.0, Immature Granulocyte # (Auto) 0.1 LIGIA WILHELM DO Oct 08, 2021 10:04
[2021-10-08] MEDS ORDERED: KETOROLAC 30 MG/ML VIAL ONE (10:25)
[2021-10-08] MEDS ORDERED: D5 LR IV SOLUTION 1,000 ML IV ONE ×2 (14:00→14:15)
[2021-10-08] MEDS: ACETAMINOPHEN 500 MG TAB (TYLENOL) PO SCH ×2 (14:01→23:07)
[2021-10-08] MEDS: CATHETER FLUSH 10 ML SYR IV SCH ×2 (16:44→21:59)
[2021-10-08] MEDS: DOCUSATE SODIUM 100 MG (COLACE) CAP PO SCH (20:43)
[2021-10-09 02:55] VITALS: BP 131/67
[2021-10-09] MEDS: CATHETER FLUSH 10 ML SYR IV SCH ×3 (05:26→21:30)
[2021-10-09] MEDS: KETOROLAC 30 MG/ML VIAL IV SCH (05:26)
[2021-10-09 06:11] LABS: BASOPHILS % (AUTO) 0 % (0-10); EOSINOPHILS % (AUTO) 0 % (0-10); HEMATOCRIT 25 % (35-52); HEMOGLOBIN 7.9 g/dL (11.5-16.0); LYMPHOCYTES # (AUTO) 1.6 10^3/uL (1.0-4.0); LYMPHOCYTES % (AUTO) 11 % (12-44); MEAN CORPUSCULAR HEMOGLOBIN 26 pg (25-34); MEAN CORPUSCULAR HGB CONC 31 g/dL (32-36); MEAN CORPUSCULAR VOLUME 84 fL (80-99); MEAN PLATELET VOLUME 11.2 fL (9.0-12.2); MONOCYTES % (AUTO) 7 % (0-12); NEUTROPHILS # (AUTO) 11.2 10^3/uL (1.8-7.8); NEUTROPHILS % (AUTO) 81 % (42-75); PLATELET COUNT 195 10^3/uL (130-400); WHITE BLOOD COUNT 13.9 10^3/uL (4.3-11.0)
[2021-10-09] MEDS: LACTATED RINGERS 1,000 ML IV SCH (06:17)
[2021-10-09 08:55] VITALS: BP 117/73
[2021-10-09] MEDS: DOCUSATE SODIUM 100 MG (COLACE) CAP PO SCH ×2 (09:26→21:28)
[2021-10-09] MEDS: ACETAMINOPHEN 500 MG TAB (TYLENOL) PO SCH ×3 (09:26→21:28)
--- NOTE | 2021-10-09 10:24 | Postpartum Progress Note ---
Note Note Day # 1 Subjective: Patient is without complaints. Ambulating, voiding. Tolerating a regular diet without nausea or vomiting. Normal lochia. Pain is well controlled with oral pain medications. Breast feeding. Objective: Physical Exam: General - Alert and oriented, no apparent distress Abdomen - Soft, appropriately tender to palpation, non-distended, fundus firm at umbilicus; incision c/d/i Extremities - no edema, negative Martina's bilaterally Assessment: Post- day #1, status post RLTCS, twins. Recovering well Acute blood loss anemia Plan: Routine care. Encourage breast feeding. Encourage ambulation. Ferrous sulfate transfusion today Recheck H&H in 10/10/21 Plan for discharge Thursday Vitals - Labs Vital Signs - I&O Vital Signs Date Time Temp Pulse Resp B/P (MAP) Pulse Ox O2 Delivery O2 Flow Rate FiO2 10/09/21 02:55 36.8 75 16 131/67 (88) 99 Room Air 10/08/21 23:12 36.5 68 16 122/72 (89) 98 Room Air 10/08/21 19:45 36.1 77 16 107/67 (80) 98 Room Air 10/08/21 15:22 Room Air 10/08/21 13:55 37.3 69 18 114/67 (83) 100 Room Air 10/08/21 11:28 37.0 74 18 136/74 (94) 100 Room Air 10/08/21 11:12 Room Air 10/08/21 11:12 37.0 20 122/74 (90) 100 Room Air 10/08/21 10:58 37.1 20 129/84 (99) 100 Room Air 10/08/21 10:58 Room Air 10/08/21 10:45 37.0 20 134/92 (106) 100 Room Air 10/08/21 10:45 Room Air 10/08/21 10:30 Room Air 10/08/21 10:30 36.4 20 128/83 (98) 100 Room Air I & O 10/09/21 07:00 Intake Total 2560 ml Output Total 2300 ml Balance 260 ml Labs Laboratory Tests 10/09/21 05:55: White Blood Count 13.9H, Red Blood Count 3.04L, Hemoglobin 7.9L, Hematocrit 25L, Mean Corpuscular Volume 84, Mean Corpuscular Hemoglobin 26, Mean Corpuscular Hemoglobin Concent 31L, Red Cell Distribution Width 12.8, Platelet Count 195, Mean Platelet Volume 11.2, Immature Granulocyte % (Auto) 1, Neutrophils (%) (Auto) 81H, Lymphocytes (%) (Auto) 11L, Monocytes (%) (Auto) 7, Eosinophils (%) (Auto) 0, Basophils (%) (Auto) 0, Neutrophils # (Auto) 11.2H, Lymphocytes # (Auto) 1.6, Monocytes # (Auto) 1.0, Eosinophils # (Auto) 0.0, Basophils # (Auto) 0.0, Immature Granulocyte # (Auto) 0.1 Microbiology 10/08/21 MRSA Screen - Final, Complete MRSA not isolated MARY MERRILL BUNCHER HAND Oct 09, 2021 10:24
[2021-10-09] MEDS ORDERED: IRON SUCROSE 200 MG/10 ML (VENOFER) VIAL IV ONE (10:30)
[2021-10-09] MEDS: IBUPROFEN 600 MG (MOTRIN) TAB PO SCH ×3 (12:27→23:15)
[2021-10-09 12:31] VITALS: BP 117/77
--- NOTE | 2021-10-09 13:24 | Anesthesia-Regional Post-Op ---
Regional Patient Condition Mental Status: Alert, Oriented x3 Circulation: Same as Pre-Op Headache: Absent Sensation: Full Recovery Motor Block: Absent Post Op Complications Complications None Follow Up Care/Instructions Patient Instructions None needed. Anesthesia/Patient Condition Patient is doing well, no complaints, stable vital signs, no apparent adverse anesthesia problems. No complications reported per nursing. DAMI LOYA CRNA Oct 09, 2021 13:24
[2021-10-09] MEDS: SENNA W/DOCUSATE (SENOKOT S) TABLET PO PRN (18:12)
[2021-10-09 18:15] VITALS: BP 120/78
[2021-10-09 23:15] VITALS: BP 126/75
[2021-10-10 07:00] VITALS: BP 126/74
[2021-10-10] MEDS: IBUPROFEN 600 MG (MOTRIN) TAB PO SCH ×3 (07:16→18:53)
[2021-10-10] MEDS: ACETAMINOPHEN 500 MG TAB (TYLENOL) PO SCH ×3 (07:17→23:04)
[2021-10-10 07:30] LABS: HEMOGLOBIN 8.1 g/dL (11.5-16.0)
[2021-10-10] MEDS: DOCUSATE SODIUM 100 MG (COLACE) CAP PO SCH ×2 (09:34→20:55)
[2021-10-10] MEDS: SENNA W/DOCUSATE (SENOKOT S) TABLET PO PRN ×2 (09:34→15:42)
[2021-10-10 13:50] VITALS: BP 136/81
[2021-10-10 18:55] VITALS: BP 117/75
[2021-10-11 00:21] VITALS: BP 126/64
[2021-10-11] MEDS: IBUPROFEN 600 MG (MOTRIN) TAB PO SCH ×2 (00:21→06:49)
[2021-10-11 06:49] VITALS: BP 125/73
[2021-10-11] MEDS: ACETAMINOPHEN 500 MG TAB (TYLENOL) PO SCH (06:49)
[2021-10-11 08:27] VITALS: BP 113/78
[2021-10-11] MEDS: DOCUSATE SODIUM 100 MG (COLACE) CAP PO SCH (08:28)
[2021-10-11 08:30] VITALS: BP 113/78
--- NOTE | 2021-10-11 08:50 | Postpartum Progress Note ---
Post Op Post-operative Day #3 s/p RLTCS Twins s/p Rhogam, s/p IV Iron for acute blood loss anemia Subjective: Patient is without complaints. Ambulating, voiding after holt removed. Tolerating a regular diet without nausea or vomiting. Normal lochia. Pain is well controlled with oral pain medications. Passing flatus. breast feeding. [] Objective: 10/11/21 10/11/21 10/11/21 00:21 06:49 08:27 Temp 36.5 36.4 36.2 Pulse 67 82 90 Resp 16 16 16 B/P (MAP) 126/64 (84) 125/73 (90) 113/78 (90) Pulse Ox 98 98 O2 Delivery Room Air Room Air Room Air Physical Exam: General - Alert and oriented, no apparent distress Abdomen - Soft, appropriately tender to palpation, non-distended, fundus firm at umbilicus Incision - clean, dry and intact; no erythema or induration, no drainage Extremities - no edema, negative Martina's bilaterally [] Assessment: [] post-operative day # [], status post []. Recovering well, hemodynamically stable [] Plan: Routine post-operative care. Encourage breast feeding. Encourage ambulation. VTE prophylaxis: SCDs. Ferrous sulfate supplementation. Plan for discharge [] Vitals - Labs Vital Signs - I&O Vital Signs Date Time Temp Pulse Resp B/P (MAP) Pulse Ox O2 Delivery O2 Flow Rate FiO2 10/11/21 08:27 36.2 90 16 113/78 (90) 98 Room Air 10/11/21 06:49 36.4 82 16 125/73 (90) 98 Room Air 10/11/21 00:21 36.5 67 16 126/64 (84) Room Air 10/10/21 18:55 36.5 70 16 117/75 (89) 98 Room Air 10/10/21 13:50 36.1 85 16 136/81 (99) 100 Room Air Labs Microbiology 10/08/21 MRSA Screen - Final, Complete MRSA not isolated LIGIA WILHELM DO Oct 11, 2021 08:49
[2021-10-11] MEDS ORDERED: IBUP-844 PO (10:57)
[2021-10-11] MEDS ORDERED: OXC5T PO (10:57)
[2021-10-11] MEDS ORDERED: ACET-93 PO (10:57)
--- NOTE | 2021-10-11 10:58 | Short Stay Summary ---
Discharge Summary Hospital Course Hospital Course Date of Admission: Oct 08, 2021 at 05:59 Admission Diagnosis : Family Physician/Provider: Olivia An MD Date of Discharge: 10/11/21 Discharge Diagnosis: [ ] Hospital Course: [ ] Labs and Pending Lab Test: Microbiology 10/08/21 MRSA Screen - Final, Complete MRSA not isolated Home Meds Active Acetaminophen 500 Mg Tablet 1,000 Mg PO Q8HR Oxyir Tablet (Oxycodone HCl) 5 Mg Tab 5 Mg PO Q4HR PRN Ibu (Ibuprofen) 600 Mg Tablet 600 Mg PO Q6HR Reported Omeprazole 40 Mg Capsule.dr 40 Mg PO DAILY Vitamins ( Vit W-Ca,Fe,FA(<1 mg)) 1 Each Tablet 1 Each PO DAILY Discharge Physical Examination Allergies: Coded Allergies: No Known Drug Allergies (Unverified , 05/15/20) Discharge Summary Date of Admission Oct 08, 2021 at 05:59 Date of Discharge Discharge Date: Oct 11, 2021 LIGIA WILHELM DO Oct 11, 2021 10:58
--- NOTE | 2021-10-11 10:59 | Discharge Inst-Women's Service ---
Discharge Inst-Women's Serv Depart Medication/Instructions New, Converted or Re-Newed RX: Transmitted to Pharmacy Instructions no lifting over 25 lbs no driving for 1 week increase iron rich foods Final Diagnosis previous section sam twins acute blood loss/iron def anemia Problems Reviewed?: Yes Consults/Follow Up Additional Follow Up: Yes (1 week and 6 weeks ) Activity Activity: Activity as Tolerated Driving Instructions: No Driving for 1 Week NO SMOKING: NO SMOKING Nothing Inside Vagina: No Douching, No Svensen, No Tampons Diet Discharge Diet: No Restrictions Symptoms to Report to : Bleeding Excessive, Pain Increased, Fever Over 101 Degrees F, Vaginal Bleeding Increase, Cramps in Feet or Legs, Vaginal Discharge Foul For Any Problems or Questions: Contact Your Physician Skin/Wound Care Infection Signs and Symptoms: Increased Redness, Foul Odor of Wound, Increased Drainage, Skin Itchy or Has a Rash, Increased Swelling, Temperature Above 101 F Operative Area Clean and Dry: Keep Incision Clean/Dry Stitches/Sumi/Dermabond: Dermabond Bathing Instructions: LIGIA Wan DO Oct 11, 2021 10:59
== END 2021-10-11 12:25 | disposition home or self-care (01) | DRG 787 ==
LOC: LDRP 05:59
PROVIDERS: ADMIT Obstetrics & Gynecology; ATTEND Obstetrics & Gynecology
PROC: 10D00Z1 Extraction of Products of Conception, Low, Open Approach (ICD-10-PCS; principal; 2021-10-08 09:04)
DX: O30.043 Twin pregnancy, dichorionic/diamniotic, third trimester (principal); D62 Acute posthemorrhagic anemia; O90.81 Anemia of the puerperium; O34.211 Maternal care for low transverse scar from previous cesarean delivery; Z3A.37 37 weeks gestation of pregnancy; Z37.2 Twins, both liveborn
CPT/HCPCS: 36415; 81000; 83033; 85014; 85018; 85025; 86850; 86900; 86901; 87081; 94664